=== PATIENT | female | born 1950 | race African-American/Black ===

== ENCOUNTER 2023-12-18 12:17 | Inpatient (IN) | payer OTHER ==
[2023-12-18 14:51] LABS: BASO % 0.2 % (0-2.0); EOS % 0.2 % (0-4.5); HEMATOCRIT 37.8 % (32.4-45.2); LYMPH % 3.7 % (8-40); MCH 27.8 pg (25.7-33.7); MCHC 31.7 g/dl (32.0-36.0); MEAN CELL VOLUME 87.8 fl (80-96); MEAN PLT VOLUME 10.4 fl (7.5-11.1); MONO % 5.5 % (3.8-10.2); NEUT % 90.4 % (42.8-82.8); PLATELET COUNT 162 10^3/uL (134-434); RDW 21.7 % (11.6-15.6); WHITE BLOOD COUNT 11.1 K/mm3 (4.0-10.0)
[2023-12-18 15:10] LABS: POTASSIUM 4.5 mmol/L (3.5-5.1)
[2023-12-18 15:12] LABS: ALBUMIN 2.6 g/dl (3.4-5.0); BLOOD UREA NITROGEN 45.7 mg/dL (7-18); CALCIUM 9.3 mg/dL (8.5-10.1)
[2023-12-18 15:14] LABS: VENOUS BASE EXCESS -0.2 mmol/L (-2-2); VENOUS O2 SATURATION 55.2 % (70-80); VENOUS PCO2 49.8 mmHg (38-52); VENOUS PH 7.34 (7.310-7.410)
[2023-12-18 15:16] LABS: CREATININE 1.8 mg/dL (0.55-1.3)
[2023-12-18 15:17] LABS: BILIRUBIN,TOTAL 0.8 mg/dL (0.2-1); TOT PROT 5.9 g/dl (6.4-8.2)
[2023-12-18 15:48] LABS: ANISOCYTOSIS 2+; MACROCYTOSIS 1+; PLATELET ESTIMATE ADEQUATE
[2023-12-18] MEDS ORDERED: VANCOMYCIN 1 GRAM (PRE-DOCKED) 1,000 MG/250 ML BAG IVPB ONE ×2 (15:58→16:38)
[2023-12-18] MEDS ORDERED: MEROPENEM 1 GM VIAL (RESTRICTED TO ID) IVPB ONE (15:59)
[2023-12-18] MEDS: MEROPENEM 1 GM in DEXTROSE 5%-WATER 100 ML IVPB ONE (16:20)
[2023-12-18 16:46] LABS: EPI CELLS >36 /uL (0-25.1); HYALINE CASTS 3 /uL (0-3.1); PH,URINE 5.5 (5.0-8.0); URINE APPEARANCE CLEAR; URINE BACTERIA 30 /uL (0-1359); URINE BILIRUBIN NEGATIVE (NEGATIVE); URINE COLOR YELLOW; URINE GLUCOSE (UA) NEGATIVE (NEGATIVE); URINE KETONE NEGATIVE (NEGATIVE); URINE LEUK ESTERASE NEGATIVE (NEGATIVE); URINE NITRITE NEGATIVE (NEGATIVE); URINE PROTEIN 2+ (NEGATIVE); URINE RBC 16 /uL (0-23.9); URINE UROBILINOGEN 0.2 mg/dL (0.2-1.0); URINE WBC 7 /uL (0-25.8)
[2023-12-18] MEDS ORDERED: morphine SULFATE 4 MG/ML VIAL ONE (17:23)
[2023-12-18] MEDS: morphine CARPU-JECT 4 MG/1 ML DISP.SYRIN IVPUSH ONE (17:39)
[2023-12-18] MEDS: VANCOMYCIN 1,000 MG in DEXTROSE 5%-WATER - 250 ML IVPB ONE (17:39)
[2023-12-18] MEDS ORDERED: MORPHINE SULFATE 2 MG/ML SYRINGE ONE ×2 (17:59→18:01)
[2023-12-18] MEDS: morphine CARPU-JECT 2 MG/1 ML DISP.SYRIN IVPUSH ONE (18:10)
[2023-12-18] MEDS ORDERED: ALBUTEROL SO4 HFA INHALER IH PRN (18:13)
[2023-12-18] MEDS ORDERED: NITROGLYCERIN SUBLINGUAL 1/150 0.4 MG TAB SL PRN (18:13)
[2023-12-18] MEDS: FUROSEMIDE 40 MG/4 ML INJECTABLE VIAL IVPUSH SCH (20:58)
[2023-12-18] MEDS ORDERED: morphine CARPU-JECT 2 MG/1 ML DISP.SYRIN IVPUSH PRN (21:21)
[2023-12-18] MEDS ORDERED: HYDROmorphone HCL CARPU-JECT 2 MG/1 ML DISP.SYRIN IVPUSH PRN (21:30)
[2023-12-18] MEDS ORDERED: SACUBITRIL/VALSARTAN 24 MG-26 MG TABLET PO SCH (22:00)
[2023-12-18] MEDS: ATORVASTATIN CA 40 MG TABLET (FP) PO SCH (22:18)
[2023-12-18] MEDS: APIXABAN 5 MG TABLET PO SCH (22:18)
[2023-12-18] MEDS: ACETAMINOPHEN 1000 MG/100 ML BAG IVPB SCH (22:19)
[2023-12-18] MEDS: INSULIN ASPART SLIDING SCALE (NOVOLOG) 1 VIAL SQ SCH (22:24)
[2023-12-19] MEDS: MEROPENEM 1 GM in DEXTROSE 5%-WATER 100 ML IVPB SCH (06:27)
[2023-12-19] MEDS: VANCOMYCIN PREMIX 1.5 GM 1,500 MG/300 ML BAG IVPB ONE (06:50)
[2023-12-19 09:12] LABS: INR 1.5 (0.83-1.09); PROTHROMBIN TIME (PATIENT) 17.1 SEC (9.7-13.0)
[2023-12-19 09:15] LABS: ACTIVATED PTT 26.6 SECONDS (25.2-36.5)
[2023-12-19 09:16] LABS: HEMATOCRIT 36.9 % (32.4-45.2); MCH 28.5 pg (25.7-33.7); MCHC 32.4 g/dl (32.0-36.0); MEAN CELL VOLUME 87.9 fl (80-96); PLATELET COUNT 150 10^3/uL (134-434); RBC 4.19 M/mm3 (3.60-5.2); RDW 21.9 % (11.6-15.6)
[2023-12-19 09:29] LABS: POTASSIUM 4.5 mmol/L (3.5-5.1)
[2023-12-19] MEDS: amLODIPine BESYLATE 10 MG TABLET (FP) PO SCH (09:35)
[2023-12-19] MEDS: ASPIRIN COATED 81 MG TABLET.EC PO SCH (09:35)
[2023-12-19 09:37] LABS: ALBUMIN 2.6 g/dl (3.4-5.0); BLOOD UREA NITROGEN 48.5 mg/dL (7-18)
[2023-12-19 09:38] LABS: CALCIUM 8.7 mg/dL (8.5-10.1)
[2023-12-19 09:39] LABS: BILIRUBIN,TOTAL 0.9 mg/dL (0.2-1); TOT PROT 5.5 g/dl (6.4-8.2)
[2023-12-19] MEDS: HYDROmorphone HCL CARPU-JECT 2 MG/1 ML DISP.SYRIN IVPUSH PRN (12:25)
[2023-12-19] MEDS ORDERED: CEFEPIME 1 GM in DEXTROSE 5%-WATER 100 ML IVPB SCH (13:15)
[2023-12-19] MEDS: SILVER SULFADIAZINE 1% TOP CREAM 400 GM JAR TP SCH (15:06)
[2023-12-19] MEDS: CEFEPIME 1 GM in DEXTROSE 5%-WATER 100 ML IVPB SCH (17:08)
[2023-12-19] MEDS ORDERED: CEFEPIME HCL 1 GM VIAL (RESTRICTED TO ID) IVPB SCH (18:00)
[2023-12-20 08:36] LABS: EPI CELLS 19 /uL (0-25.1); HYALINE CASTS 1 /uL (0-3.1); PH,URINE 5.5 (5.0-8.0); URINE APPEARANCE CLEAR; URINE BACTERIA 7 /uL (0-1359); URINE BILIRUBIN NEGATIVE (NEGATIVE); URINE COLOR YELLOW; URINE GLUCOSE (UA) NEGATIVE (NEGATIVE); URINE KETONE NEGATIVE (NEGATIVE); URINE LEUK ESTERASE NEGATIVE (NEGATIVE); URINE NITRITE NEGATIVE (NEGATIVE); URINE PROTEIN 1+ (NEGATIVE); URINE RBC 38 /uL (0-23.9); URINE UROBILINOGEN 0.2 mg/dL (0.2-1.0); URINE WBC 11 /uL (0-25.8)
[2023-12-20 09:28] LABS: BASO % 0.1 % (0-2.0); EOS % 3.1 % (0-4.5); HEMATOCRIT 38.7 % (32.4-45.2); HEMOGLOBIN 12.3 GM/dL (10.7-15.3); LYMPH % 13.6 % (8-40); MCH 28.2 pg (25.7-33.7); MCHC 31.8 g/dl (32.0-36.0); MEAN CELL VOLUME 88.7 fl (80-96); MEAN PLT VOLUME 9.9 fl (7.5-11.1); MONO % 9.3 % (3.8-10.2); NEUT % 73.9 % (42.8-82.8); PLATELET COUNT 131 10^3/uL (134-434); RBC 4.36 M/mm3 (3.60-5.2); RDW 21.9 % (11.6-15.6); WHITE BLOOD COUNT 7.1 K/mm3 (4.0-10.0)
[2023-12-20 09:40] LABS: CALCIUM 8.8 mg/dL (8.5-10.1)
[2023-12-20 09:41] LABS: BLOOD UREA NITROGEN 51.2 mg/dL (7-18)
[2023-12-20 09:44] LABS: MAGNESIUM 2.2 mg/dL (1.8-2.4)
[2023-12-20] MEDS ORDERED: INSULIN ASPART SLIDING SCALE (NOVOLOG) 1 VIAL SQ ONE (17:13)
[2023-12-21 12:16] LABS: BASO % 0.1 % (0-2.0); EOS % 3.3 % (0-4.5); HEMATOCRIT 38.1 % (32.4-45.2); LYMPH % 11.5 % (8-40); MCH 28.3 pg (25.7-33.7); MCHC 31.5 g/dl (32.0-36.0); MEAN CELL VOLUME 89.7 fl (80-96); MEAN PLT VOLUME 10.4 fl (7.5-11.1); MONO % 13.6 % (3.8-10.2); NEUT % 71.5 % (42.8-82.8); PLATELET COUNT 143 10^3/uL (134-434); RBC 4.24 M/mm3 (3.60-5.2); RDW 21.5 % (11.6-15.6); WHITE BLOOD COUNT 8.8 K/mm3 (4.0-10.0)
[2023-12-21 12:40] LABS: POTASSIUM 4.6 mmol/L (3.5-5.1)
[2023-12-21 12:41] LABS: CALCIUM 9.1 mg/dL (8.5-10.1)
[2023-12-21 12:42] LABS: BLOOD UREA NITROGEN 49.1 mg/dL (7-18)
[2023-12-21 12:45] LABS: CREATININE 1.7 mg/dL (0.55-1.3)
[2023-12-21] MEDS: MEROPENEM 1 GM in DEXTROSE 5%-WATER 100 ML IVPB SCH (18:11)
[2023-12-22] MEDS ORDERED: ONDANSETRON 4 MG/2 ML VIAL IVPUSH PRN (09:06)
[2023-12-22] MEDS: METOCLOPRAMIDE HCL INJECTION 10 MG/2 ML VIAL IVPUSH ONE ×2 (10:58→11:33)
[2023-12-22] MEDS: PANTOPRAZOLE SODIUM 80 MG in SODIUM CHLORIDE 100 ML IVPB ONE (10:58)
[2023-12-22] MEDS: PANTOPRAZOLE SODIUM 40 MG VIAL IVPUSH ONE (11:34)
[2023-12-22] MEDS: PANTOPRAZOLE SODIUM 80 MG in SODIUM CHLORIDE 100 ML IVPB SCH (12:35)
[2023-12-22 13:03] LABS: BASO % 0.2 % (0-2.0); EOS % 1.1 % (0-4.5); HEMATOCRIT 28.6 % (32.4-45.2); HEMOGLOBIN 9.2 GM/dL (10.7-15.3); LYMPH % 8.7 % (8-40); MCH 28.6 pg (25.7-33.7); MCHC 32.2 g/dl (32.0-36.0); MEAN CELL VOLUME 88.8 fl (80-96); MEAN PLT VOLUME 10.4 fl (7.5-11.1); MONO % 9.6 % (3.8-10.2); NEUT % 80.4 % (42.8-82.8); PLATELET COUNT 134 10^3/uL (134-434); RBC 3.23 M/mm3 (3.60-5.2); RDW 21.1 % (11.6-15.6); WHITE BLOOD COUNT 8.3 K/mm3 (4.0-10.0)
[2023-12-22 13:11] LABS: INR 1.98 (0.83-1.09); PROTHROMBIN TIME (PATIENT) 21.9 SEC (9.7-13.0)
[2023-12-22 13:26] LABS: POTASSIUM 4.4 mmol/L (3.5-5.1)
[2023-12-22 13:27] LABS: CALCIUM 8.4 mg/dL (8.5-10.1)
[2023-12-22 13:28] LABS: ALBUMIN 2.1 g/dl (3.4-5.0); BLOOD UREA NITROGEN 58.4 mg/dL (7-18); MAGNESIUM 2.1 mg/dL (1.8-2.4)
[2023-12-22 13:32] LABS: CREATININE 1.6 mg/dL (0.55-1.3)
[2023-12-22 13:34] LABS: TOT PROT 4.8 g/dl (6.4-8.2)
[2023-12-22 13:38] LABS: ANISOCYTOSIS 2+; MACROCYTOSIS 0; OVALOCYTE 1+; TARGET CELLS 1+
[2023-12-22] MEDS: METOPROLOL TARTRATE 5 MG/5 ML VIAL IVPUSH ONE (17:50)
[2023-12-22] MEDS ORDERED: METOCLOPRAMIDE HCL INJECTION 10 MG/2 ML VIAL IVPUSH SCH (18:00)
[2023-12-22] MEDS ORDERED: RAPID SEQUENCE INTUBATION KIT NR ONE (18:39)
[2023-12-22] MEDS ORDERED: PROPOFOL 1,000,000 MCG/100 ML VIAL ONE (19:26)
[2023-12-22] MEDS ORDERED: FENTANYL NS IVPB 500 MCG/100 ML BAG IVPB ONE (19:27)
[2023-12-22 19:46] LABS: BASO % 0.3 % (0-2.0); EOS % 0.4 % (0-4.5); HEMATOCRIT 27.7 % (32.4-45.2); HEMOGLOBIN 8.8 GM/dL (10.7-15.3); LYMPH % 10.6 % (8-40); MCH 28.3 pg (25.7-33.7); MCHC 31.8 g/dl (32.0-36.0); MEAN CELL VOLUME 89.1 fl (80-96); MEAN PLT VOLUME 10.1 fl (7.5-11.1); MONO % 10.3 % (3.8-10.2); NEUT % 78.4 % (42.8-82.8); PLATELET COUNT 131 10^3/uL (134-434); RBC 3.11 M/mm3 (3.60-5.2); RDW 21.3 % (11.6-15.6); WHITE BLOOD COUNT 9.1 K/mm3 (4.0-10.0)
[2023-12-22] MEDS: methylPREDNISolone NA SUCC 40 MG/1 ML VIAL IVPUSH ONE (20:34)
[2023-12-22] MEDS: LACTATED RINGERS SOLUTION 1000 ML INFUS.BAG IV ONE ×2 (20:36→22:09)
[2023-12-22] MEDS: FENTANYL NS IVPB 500 MCG/100 ML BAG IVPB SCH (20:36)
[2023-12-22] MEDS: PROPOFOL 1,000,000 MCG/100 ML VIAL IVPB SCH (20:36)
[2023-12-22 21:20] LABS: ARTERIAL BLD GAS O2 SATURATION 99.7 % (95-98); ARTERIAL BLOOD GAS PO2 292.1 mmHg (80-100); ARTERIAL BLOOD GAS pH 7.468 (7.350-7.450)
[2023-12-22 21:25] LABS: VENT MODE V A/C; VENT RATE 20
[2023-12-22 21:27] LABS: INR 2.16 (0.83-1.09); PROTHROMBIN TIME (PATIENT) 23.9 SEC (9.7-13.0)
[2023-12-22] MEDS: CHLORHEXIDINE GLUCONATE 4% CLEANSER FOR DECOLONIZATION TP SCH (21:37)
[2023-12-22] MEDS: MUPIROCIN 2% TOPICAL OINTMENT FOR DECOLONIZATION NS SCH (21:37)
[2023-12-22] MEDS ORDERED: PHENYLEPHRINE HCL 50,000 MCG in SODIUM CHLORIDE 500 ML IV SCH (22:00)
[2023-12-22 22:23] LABS: BASO % 0.2 % (0-2.0); EOS % 0.9 % (0-4.5); HEMATOCRIT 18.9 % (32.4-45.2); LYMPH % 6.7 % (8-40); MCH 28.2 pg (25.7-33.7); MCHC 32.4 g/dl (32.0-36.0); MEAN CELL VOLUME 87.1 fl (80-96); MEAN PLT VOLUME 10.3 fl (7.5-11.1); MONO % 8.6 % (3.8-10.2); NEUT % 83.6 % (42.8-82.8); PLATELET COUNT 96 10^3/uL (134-434); RBC 2.16 M/mm3 (3.60-5.2); WHITE BLOOD COUNT 6.8 K/mm3 (4.0-10.0)
[2023-12-22] MEDS ORDERED: ALBUTEROL SO4 HFA INHALER IH PRN (22:26)
[2023-12-22 22:30] LABS: HEMOGLOBIN 6.1 GM/dL (10.7-15.3)
[2023-12-22] MEDS: LACTATED RINGERS SOLUTION 1,000 ML IV SCH (22:39)
[2023-12-22] MEDS: INSULIN ASPART SLIDING SCALE (NOVOLOG) 1 VIAL SQ SCH (23:10)
[2023-12-23 01:55] LABS: MCH 29.7 pg (25.7-33.7); MCHC 33.5 g/dl (32.0-36.0); MEAN CELL VOLUME 88.6 fl (80-96); MEAN PLT VOLUME 8.9 fl (7.5-11.1); PLATELET COUNT 128 10^3/uL (134-434); RBC 3.05 M/mm3 (3.60-5.2); RDW 18.2 % (11.6-15.6); WHITE BLOOD COUNT 8.8 K/mm3 (4.0-10.0)
[2023-12-23 04:34] LABS: ANISOCYTOSIS 3+; MACROCYTOSIS 0; OVALOCYTE 1+; ROULEAU 1+
[2023-12-23 05:33] LABS: HEMATOCRIT 27.2 % (32.4-45.2); HEMOGLOBIN 9.3 GM/dL (10.7-15.3); MCH 30.1 pg (25.7-33.7); MCHC 34.2 g/dl (32.0-36.0); MEAN PLT VOLUME 8.8 fl (7.5-11.1); PLATELET COUNT 121 10^3/uL (134-434); RBC 3.09 M/mm3 (3.60-5.2); RDW 17.6 % (11.6-15.6); WHITE BLOOD COUNT 8.3 K/mm3 (4.0-10.0)
[2023-12-23 06:45] LABS: INR 1.52 (0.83-1.09)
[2023-12-23 06:56] LABS: POTASSIUM 3.9 mmol/L (3.5-5.1)
[2023-12-23 06:59] LABS: CALCIUM 7.5 mg/dL (8.5-10.1)
[2023-12-23 07:00] LABS: ALBUMIN 1.8 g/dl (3.4-5.0); MAGNESIUM 1.9 mg/dL (1.8-2.4)
[2023-12-23] MEDS ORDERED: methylPREDNISolone NA SUCC 40 MG/1 ML VIAL IVPUSH ONE ×2 (07:00→10:00)
[2023-12-23] MEDS ORDERED: INSULIN ASPART SLIDING SCALE (NOVOLOG) 1 VIAL SQ SCH (07:00)
[2023-12-23 07:03] LABS: CREATININE 1.5 mg/dL (0.55-1.3)
[2023-12-23 07:04] LABS: TOT PROT 3.8 g/dl (6.4-8.2)
[2023-12-23 08:24] LABS: ANISOCYTOSIS 1+; MACROCYTOSIS 0; OVALOCYTE 1+; TARGET CELLS 1+
[2023-12-23] MEDS: PANTOPRAZOLE SODIUM 80 MG in SODIUM CHLORIDE 100 ML IVPB SCH (10:01)
[2023-12-23] MEDS: methylPREDNISolone NA SUCC 40 MG/1 ML VIAL IVPUSH ONE ×2 (10:08→14:53)
[2023-12-23 10:36] LABS: ARTERIAL BLD GAS O2 SATURATION 99.6 % (95-98); ARTERIAL BLOOD GAS BASE EXCESS 1.1 mmol/L (-2-2); ARTERIAL BLOOD GAS PO2 238.9 mmHg (80-100); ARTERIAL BLOOD GAS pH 7.529 (7.350-7.450)
[2023-12-23 10:48] LABS: VENT MODE A/C; VENT RATE 14
[2023-12-23] MEDS: SILVER SULFADIAZINE 1% TOP CREAM 400 GM JAR TP SCH (11:36)
[2023-12-23] MEDS: NOREPINEPHRINE 0.9 % NACL 8 MG/250 ML BAG IVPB SCH (11:58)
[2023-12-23] MEDS ORDERED: FACTOR XA,INACTIVATED-ZHZO 480 MG/48 ML VIAL IVPB ONE (14:50)
[2023-12-23] MEDS: FACTOR XA,INACTIVATED - BOLUS 400 MG/40 ML VIAL IVPB ONE (14:54)
[2023-12-23] MEDS: LACTATED RINGERS SOLUTION 1,000 ML IV SCH (14:55)
[2023-12-23] MEDS: SODIUM CHLORIDE 50 ML IVPB ONE (14:55)
[2023-12-23 15:11] LABS: HEMATOCRIT 29.7 % (32.4-45.2); MCH 29.5 pg (25.7-33.7); MCHC 33.6 g/dl (32.0-36.0); MEAN CELL VOLUME 87.6 fl (80-96); MEAN PLT VOLUME 9.3 fl (7.5-11.1); PLATELET COUNT 158 10^3/uL (134-434); RBC 3.39 M/mm3 (3.60-5.2); WHITE BLOOD COUNT 9.9 K/mm3 (4.0-10.0)
[2023-12-23 15:39] LABS: MACROCYTOSIS 0
[2023-12-23 15:42] LABS: ANISOCYTOSIS 0
[2023-12-23] MEDS ORDERED: SODIUM CHLORIDE 50 ML IVPB ONE (16:25)
[2023-12-23 20:39] LABS: HEMATOCRIT 31.1 % (32.4-45.2); HEMOGLOBIN 10.2 GM/dL (10.7-15.3); LYMPH % 3.7 % (8-40); MCH 28.8 pg (25.7-33.7); MCHC 32.8 g/dl (32.0-36.0); MEAN CELL VOLUME 87.6 fl (80-96); MEAN PLT VOLUME 9.4 fl (7.5-11.1); MONO % 3.6 % (3.8-10.2); NEUT % 92.7 % (42.8-82.8); PLATELET COUNT 170 10^3/uL (134-434); RBC 3.55 M/mm3 (3.60-5.2); RDW 17.6 % (11.6-15.6); WHITE BLOOD COUNT 11.8 K/mm3 (4.0-10.0)
[2023-12-23 20:47] LABS: INR 1.3 (0.83-1.09); PROTHROMBIN TIME (PATIENT) 14.8 SEC (9.7-13.0)
[2023-12-23 20:49] LABS: ACTIVATED PTT 24.3 SECONDS (25.2-36.5)
[2023-12-23 21:10] LABS: POTASSIUM 4.1 mmol/L (3.5-5.1)
[2023-12-23 21:12] LABS: BLOOD UREA NITROGEN 72.8 mg/dL (7-18); MAGNESIUM 2.1 mg/dL (1.8-2.4)
[2023-12-23 21:15] LABS: ANISOCYTOSIS 1+; CREATININE 1.9 mg/dL (0.55-1.3); MACROCYTOSIS 1+
[2023-12-23 21:16] LABS: PHOSPHOROUS 3.3 mg/dL (2.5-4.9)
[2023-12-23] MEDS: PANTOPRAZOLE SODIUM 40 MG VIAL IVPUSH SCH (23:36)
[2023-12-24] MEDS ORDERED: PHENYLEPHRINE HCL 10 MG/1 ML SINGLE DOSE VIAL ONE (01:58)
[2023-12-24 06:57] LABS: BASO % 0.1 % (0-2.0); HEMATOCRIT 31.3 % (32.4-45.2); HEMOGLOBIN 10.6 GM/dL (10.7-15.3); MCH 29.7 pg (25.7-33.7); MCHC 33.7 g/dl (32.0-36.0); MEAN PLT VOLUME 9.4 fl (7.5-11.1); MONO % 7.7 % (3.8-10.2); NEUT % 87.2 % (42.8-82.8); PLATELET COUNT 170 10^3/uL (134-434); RBC 3.56 M/mm3 (3.60-5.2); RDW 18.2 % (11.6-15.6); WHITE BLOOD COUNT 14.9 K/mm3 (4.0-10.0)
[2023-12-24 07:07] LABS: ARTERIAL BLD GAS O2 SATURATION 99.1 % (95-98); ARTERIAL BLOOD GAS BASE EXCESS -1.7 mmol/L (-2-2); ARTERIAL BLOOD GAS PO2 167.8 mmHg (80-100); ARTERIAL BLOOD GAS pH 7.402 (7.350-7.450)
[2023-12-24 07:15] LABS: PT'S TEMP INTUBATE; VENT MODE 400; VENT RATE 7
[2023-12-24 07:16] LABS: POTASSIUM 4.2 mmol/L (3.5-5.1)
[2023-12-24 07:22] LABS: ALBUMIN 2.2 g/dl (3.4-5.0); BLOOD UREA NITROGEN 75.1 mg/dL (7-18); CALCIUM 7.9 mg/dL (8.5-10.1)
[2023-12-24 07:25] LABS: CREATININE 2.1 mg/dL (0.55-1.3)
[2023-12-24 07:26] LABS: PHOSPHOROUS 3.5 mg/dL (2.5-4.9)
[2023-12-24 07:28] LABS: BILIRUBIN,TOTAL 0.7 mg/dL (0.2-1); TOT PROT 4.5 g/dl (6.4-8.2)
[2023-12-24] MEDS: ADENOSINE 6 MG/2 ML VIAL IVPUSH ONE ×3 (11:18→11:43)
[2023-12-24] MEDS ORDERED: AMIODARONE IN DEXTROSE,ISO-OSM 150 MG/100 ML BAG ONE (11:32)
[2023-12-24] MEDS: AMIODARONE HCL INJECTION 150 MG in DEXTROSE 5%-WATER - 100 ML IVPB ONE (11:44)
[2023-12-24] MEDS: AMIODARONE IN DEXTROSE,ISO-OSM 360 MG/200 ML BAG IV SCH ×2 (11:47→17:38)
[2023-12-25 06:42] LABS: BASO % 0.1 % (0-2.0); EOS % 1.3 % (0-4.5); HEMOGLOBIN 9.1 GM/dL (10.7-15.3); LYMPH % 6.5 % (8-40); MCH 29.3 pg (25.7-33.7); MCHC 32.5 g/dl (32.0-36.0); MEAN CELL VOLUME 90.2 fl (80-96); MEAN PLT VOLUME 9.8 fl (7.5-11.1); MONO % 9.5 % (3.8-10.2); NEUT % 82.6 % (42.8-82.8); PLATELET COUNT 112 10^3/uL (134-434); RBC 3.11 M/mm3 (3.60-5.2); RDW 17.8 % (11.6-15.6); WHITE BLOOD COUNT 11.9 K/mm3 (4.0-10.0)
[2023-12-25 07:01] LABS: POTASSIUM 3.9 mmol/L (3.5-5.1)
[2023-12-25 07:08] LABS: ALBUMIN 1.9 g/dl (3.4-5.0); BLOOD UREA NITROGEN 78.3 mg/dL (7-18); CALCIUM 8.1 mg/dL (8.5-10.1); MAGNESIUM 2.1 mg/dL (1.8-2.4)
[2023-12-25 07:11] LABS: CREATININE 2.2 mg/dL (0.55-1.3)
[2023-12-25 07:13] LABS: TOT PROT 4.1 g/dl (6.4-8.2)
[2023-12-25] MEDS ORDERED: DEXTROSE 50%-WATER 25 GM/50 ML DISP.SYRIN ONE (12:18)
[2023-12-25] MEDS: DEXTROSE 50%-WATER 25 GM/50 ML DISP.SYRIN IVPUSH ONE ×2 (12:25→22:29)
[2023-12-25] MEDS: DEXTROSE 5%-WATER - 1,000 ML IV SCH (22:29)
[2023-12-26] MEDS: DEXTROSE 10%-WATER - 1,000 ML IV SCH (06:36)
[2023-12-26] MEDS: DEXTROSE 50%-WATER 25 GM/50 ML DISP.SYRIN IVPUSH ONE ×2 (06:36→17:40)
[2023-12-26 07:37] LABS: ARTERIAL BLD GAS O2 SATURATION 98.9 % (95-98); ARTERIAL BLOOD GAS BASE EXCESS -1.6 mmol/L (-2-2); ARTERIAL BLOOD GAS PO2 146.2 mmHg (80-100); ARTERIAL BLOOD GAS pH 7.392 (7.350-7.450)
[2023-12-26 07:50] LABS: VENT MODE V-A/C; VENT RATE 12
[2023-12-26 07:57] LABS: POTASSIUM 3.4 mmol/L (3.5-5.1)
[2023-12-26 08:04] LABS: ALBUMIN 1.7 g/dl (3.4-5.0); BLOOD UREA NITROGEN 71.6 mg/dL (7-18); CALCIUM 7.8 mg/dL (8.5-10.1); HEMATOCRIT 26.2 % (32.4-45.2); HEMOGLOBIN 8.5 GM/dL (10.7-15.3); MAGNESIUM 2.1 mg/dL (1.8-2.4); MCHC 32.4 g/dl (32.0-36.0); MEAN CELL VOLUME 89.7 fl (80-96); MEAN PLT VOLUME 10.3 fl (7.5-11.1); PLATELET COUNT 99 10^3/uL (134-434); RBC 2.92 M/mm3 (3.60-5.2); RDW 18.8 % (11.6-15.6); WHITE BLOOD COUNT 10.5 K/mm3 (4.0-10.0)
[2023-12-26 08:07] LABS: CREATININE 2.1 mg/dL (0.55-1.3)
[2023-12-26 08:08] LABS: BILIRUBIN,TOTAL 0.6 mg/dL (0.2-1); PHOSPHOROUS 3.2 mg/dL (2.5-4.9)
[2023-12-26 08:09] LABS: TOT PROT 3.5 g/dl (6.4-8.2)
[2023-12-26] MEDS: KCL 20 MEQ PREMIX BAG 20 MEQ/100 ML INFUS.BAG IVPB ONE (13:49)
[2023-12-26] MEDS ORDERED: AMIODARONE IN DEXTROSE,ISO-OSM 360 MG/200 ML BAG IV SCH (15:45)
[2023-12-26] MEDS ORDERED: DEXTROSE 50%-WATER 25 GM/50 ML DISP.SYRIN ONE (17:20)
[2023-12-26] MEDS: AMIODARONE IN DEXTROSE,ISO-OSM 360 MG/200 ML BAG IV SCH (18:29)
[2023-12-26] MEDS ORDERED: AMIODARONE HCL 200 MG TABLET NGT SCH (22:00)
[2023-12-27 07:28] LABS: INR 1.08 (0.83-1.09); PROTHROMBIN TIME (PATIENT) 12.2 SEC (9.7-13.0)
[2023-12-27 07:31] LABS: ACTIVATED PTT 24.4 SECONDS (25.2-36.5)
[2023-12-27 07:37] LABS: HEMATOCRIT 26.7 % (32.4-45.2); HEMOGLOBIN 8.8 GM/dL (10.7-15.3); MCH 29.5 pg (25.7-33.7); MCHC 32.8 g/dl (32.0-36.0); MEAN CELL VOLUME 89.9 fl (80-96); MEAN PLT VOLUME 10.2 fl (7.5-11.1); PLATELET COUNT 98 10^3/uL (134-434); POTASSIUM 3.5 mmol/L (3.5-5.1); RBC 2.97 M/mm3 (3.60-5.2); RDW 18.4 % (11.6-15.6)
[2023-12-27 07:40] LABS: ALBUMIN 1.6 g/dl (3.4-5.0); BLOOD UREA NITROGEN 58.1 mg/dL (7-18)
[2023-12-27 07:43] LABS: CREATININE 1.6 mg/dL (0.55-1.3)
[2023-12-27 07:44] LABS: BILIRUBIN,TOTAL 0.4 mg/dL (0.2-1)
[2023-12-27 07:45] LABS: TOT PROT 3.6 g/dl (6.4-8.2)
[2023-12-27] MEDS: KCL 20 MEQ PREMIX BAG 20 MEQ/100 ML INFUS.BAG IVPB ONE (09:42)
[2023-12-27] MEDS: AMINO ACIDS 4.25%/D5W 1,000 ML IV SCH ×3 (13:08→20:27)
[2023-12-28 06:23] LABS: ARTERIAL BLD GAS O2 SATURATION 97.4 % (95-98); ARTERIAL BLOOD GAS BASE EXCESS -2.7 mmol/L (-2-2); ARTERIAL BLOOD GAS PO2 105.3 mmHg (80-100); ARTERIAL BLOOD GAS pH 7.328 (7.350-7.450)
[2023-12-28 06:33] LABS: VENT MODE A/C; VENT RATE 12
[2023-12-28 06:49] LABS: INR 1.07 (0.83-1.09); PROTHROMBIN TIME (PATIENT) 12.3 SEC (9.7-13.0)
[2023-12-28 06:53] LABS: BASO % 0.2 % (0-2.0); EOS % 1.9 % (0-4.5); HEMATOCRIT 29.7 % (32.4-45.2); HEMOGLOBIN 9.5 GM/dL (10.7-15.3); MCHC 32.1 g/dl (32.0-36.0); MEAN CELL VOLUME 90.3 fl (80-96); MEAN PLT VOLUME 10.2 fl (7.5-11.1); MONO % 7.9 % (3.8-10.2); PLATELET COUNT 110 10^3/uL (134-434); RBC 3.29 M/mm3 (3.60-5.2); RDW 18.6 % (11.6-15.6); WHITE BLOOD COUNT 13.2 K/mm3 (4.0-10.0)
[2023-12-28 06:54] LABS: POTASSIUM 3.6 mmol/L (3.5-5.1)
[2023-12-28 07:00] LABS: ALBUMIN 1.7 g/dl (3.4-5.0); BLOOD UREA NITROGEN 57.8 mg/dL (7-18)
[2023-12-28 07:03] LABS: CREATININE 1.6 mg/dL (0.55-1.3)
[2023-12-28 07:04] LABS: BILIRUBIN,TOTAL 0.8 mg/dL (0.2-1)
[2023-12-28 07:05] LABS: TOT PROT 4.1 g/dl (6.4-8.2)
[2023-12-28 12:33] VITALS: BMI 44.2
[2023-12-28] MEDS: ENOXAPARIN NA (PORCINE) 40 MG/0.4 ML DISP.SYRIN SQ SCH (13:37)
[2023-12-28] MEDS: FUROSEMIDE 40 MG/4 ML INJECTABLE VIAL IVPUSH ONE (13:38)
[2023-12-28] MEDS: METOPROLOL TARTRATE 50 MG TABLET (FP) PO SCH (16:33)
[2023-12-29 06:31] LABS: ARTERIAL BLD GAS O2 SATURATION 98.7 % (95-98); ARTERIAL BLOOD GAS BASE EXCESS -2.9 mmol/L (-2-2); ARTERIAL BLOOD GAS PO2 136.2 mmHg (80-100); ARTERIAL BLOOD GAS pH 7.384 (7.350-7.450)
[2023-12-29 06:47] LABS: BASO % 0.3 % (0-2.0); HEMATOCRIT 28.5 % (32.4-45.2); HEMOGLOBIN 9.2 GM/dL (10.7-15.3); LYMPH % 5.1 % (8-40); MCH 29.2 pg (25.7-33.7); MCHC 32.2 g/dl (32.0-36.0); MEAN CELL VOLUME 90.7 fl (80-96); MEAN PLT VOLUME 10.2 fl (7.5-11.1); MONO % 9.5 % (3.8-10.2); NEUT % 83.1 % (42.8-82.8); PLATELET COUNT 119 10^3/uL (134-434); RBC 3.14 M/mm3 (3.60-5.2); RDW 18.2 % (11.6-15.6); WHITE BLOOD COUNT 11.2 K/mm3 (4.0-10.0)
[2023-12-29 06:57] LABS: POTASSIUM 3.6 mmol/L (3.5-5.1)
[2023-12-29 07:04] LABS: ALBUMIN 1.6 g/dl (3.4-5.0)
[2023-12-29 07:05] LABS: BLOOD UREA NITROGEN 59.6 mg/dL (7-18)
[2023-12-29 07:09] LABS: BILIRUBIN,TOTAL 0.7 mg/dL (0.2-1)
[2023-12-29 07:13] LABS: CREATININE 1.6 mg/dL (0.55-1.3)
[2023-12-29] MEDS: FUROSEMIDE 40 MG/4 ML INJECTABLE VIAL IVPUSH ONE ×2 (11:36→23:16)
[2023-12-29] MEDS ORDERED: PROPOFOL 200 MG/20 ML VIAL IVPUSH PRN (13:38)
[2023-12-29] MEDS ORDERED: FUROSEMIDE 40 MG/4 ML INJECTABLE VIAL ONE (22:51)
[2023-12-29] MEDS: APIXABAN 5 MG TABLET PO SCH (22:53)
[2023-12-30 06:53] LABS: BASO % 0.2 % (0-2.0); EOS % 1.5 % (0-4.5); HEMATOCRIT 27.7 % (32.4-45.2); HEMOGLOBIN 9.2 GM/dL (10.7-15.3); LYMPH % 4.2 % (8-40); MCH 29.7 pg (25.7-33.7); MCHC 33.1 g/dl (32.0-36.0); MEAN CELL VOLUME 89.7 fl (80-96); MEAN PLT VOLUME 9.9 fl (7.5-11.1); MONO % 10.5 % (3.8-10.2); NEUT % 83.6 % (42.8-82.8); PLATELET COUNT 138 10^3/uL (134-434); RBC 3.09 M/mm3 (3.60-5.2); RDW 17.7 % (11.6-15.6)
[2023-12-30 07:25] LABS: POTASSIUM 3.2 mmol/L (3.5-5.1)
[2023-12-30 07:31] LABS: ALBUMIN 1.6 g/dl (3.4-5.0); CALCIUM 8.1 mg/dL (8.5-10.1)
[2023-12-30 07:32] LABS: BLOOD UREA NITROGEN 53.7 mg/dL (7-18); MAGNESIUM 1.9 mg/dL (1.8-2.4)
[2023-12-30 07:35] LABS: CREATININE 1.5 mg/dL (0.55-1.3)
[2023-12-30 07:36] LABS: BILIRUBIN,TOTAL 0.9 mg/dL (0.2-1); TOT PROT 4.1 g/dl (6.4-8.2)
[2023-12-30] MEDS ORDERED: DEXTROSE 50%-WATER 25 GM/50 ML DISP.SYRIN ONE (11:11)
[2023-12-30] MEDS: FUROSEMIDE 40 MG/4 ML INJECTABLE VIAL IVPUSH SCH (11:15)
[2023-12-30] MEDS: DEXTROSE 50%-WATER 25 GM/50 ML DISP.SYRIN IVPUSH ONE ×3 (11:18→17:37)
[2023-12-30] MEDS: POTASSIUM CHLORIDE ORAL LIQUID 20 MEQ/15 ML GT ONE (11:30)
[2023-12-30] MEDS: KCL 10 MEQ IVPB 10 MEQ/100 ML INFUS.BAG IVPB SCH (14:33)
[2023-12-31 08:09] LABS: BASO % 0.1 % (0-2.0); EOS % 1.7 % (0-4.5); HEMATOCRIT 25.3 % (32.4-45.2); HEMOGLOBIN 8.2 GM/dL (10.7-15.3); LYMPH % 4.3 % (8-40); MCH 29.4 pg (25.7-33.7); MCHC 32.6 g/dl (32.0-36.0); MEAN CELL VOLUME 90.3 fl (80-96); MEAN PLT VOLUME 9.6 fl (7.5-11.1); MONO % 13.4 % (3.8-10.2); NEUT % 80.5 % (42.8-82.8); PLATELET COUNT 153 10^3/uL (134-434); RDW 17.5 % (11.6-15.6); WHITE BLOOD COUNT 12.9 K/mm3 (4.0-10.0)
[2023-12-31 08:55] LABS: ALBUMIN 1.6 g/dl (3.4-5.0); BILIRUBIN,TOTAL 0.7 mg/dL (0.2-1); BLOOD UREA NITROGEN 51.3 mg/dL (7-18); CALCIUM 8.2 mg/dL (8.5-10.1); CREATININE 1.6 mg/dL (0.55-1.3); MAGNESIUM 1.9 mg/dL (1.8-2.4); PHOSPHOROUS 2.5 mg/dL (2.5-4.9); POTASSIUM 3.4 mmol/L (3.5-5.1); TOT PROT 4.2 g/dl (6.4-8.2)
[2023-12-31] MEDS: POTASSIUM CHLORIDE ORAL LIQUID 20 MEQ/15 ML PO ONE (10:52)
[2023-12-31] MEDS ORDERED: INSULIN ASPART SLIDING SCALE (NOVOLOG) 1 VIAL SQ ONE (11:05)
[2023-12-31 14:53] LABS: BASO % 0.3 % (0-2.0); EOS % 1.4 % (0-4.5); HEMATOCRIT 26.3 % (32.4-45.2); HEMOGLOBIN 8.4 GM/dL (10.7-15.3); LYMPH % 4.6 % (8-40); MCH 28.8 pg (25.7-33.7); MCHC 31.9 g/dl (32.0-36.0); MEAN CELL VOLUME 90.2 fl (80-96); MEAN PLT VOLUME 9.6 fl (7.5-11.1); MONO % 13.7 % (3.8-10.2); PLATELET COUNT 177 10^3/uL (134-434); RBC 2.91 M/mm3 (3.60-5.2); RDW 18.1 % (11.6-15.6); WHITE BLOOD COUNT 12.7 K/mm3 (4.0-10.0)
[2024-01-01] MEDS: PROPOFOL 200 MG/20 ML VIAL IVPUSH PRN (04:48)
[2024-01-01 06:55] LABS: BASO % 0.2 % (0-2.0); EOS % 2.3 % (0-4.5); HEMATOCRIT 24.9 % (32.4-45.2); HEMOGLOBIN 8.2 GM/dL (10.7-15.3); LYMPH % 5.5 % (8-40); MCH 29.8 pg (25.7-33.7); MCHC 32.8 g/dl (32.0-36.0); MEAN CELL VOLUME 90.7 fl (80-96); MEAN PLT VOLUME 9.8 fl (7.5-11.1); MONO % 14.3 % (3.8-10.2); NEUT % 77.7 % (42.8-82.8); PLATELET COUNT 172 10^3/uL (134-434); RBC 2.74 M/mm3 (3.60-5.2); RDW 17.7 % (11.6-15.6); WHITE BLOOD COUNT 12.3 K/mm3 (4.0-10.0)
[2024-01-01 07:12] LABS: POTASSIUM 3.9 mmol/L (3.5-5.1)
[2024-01-01 07:15] LABS: CALCIUM 8.2 mg/dL (8.5-10.1)
[2024-01-01 07:16] LABS: ALBUMIN 1.7 g/dl (3.4-5.0); BLOOD UREA NITROGEN 51.4 mg/dL (7-18); MAGNESIUM 1.8 mg/dL (1.8-2.4)
[2024-01-01 07:19] LABS: CREATININE 1.5 mg/dL (0.55-1.3); PHOSPHOROUS 2.1 mg/dL (2.5-4.9)
[2024-01-01 07:21] LABS: BILIRUBIN,TOTAL 0.8 mg/dL (0.2-1); TOT PROT 4.6 g/dl (6.4-8.2)
[2024-01-01] MEDS: SCOPOLAMINE HYDROBROMIDE 1 PATCH PATCH.TD72 TD SCH (12:25)
[2024-01-01] MEDS: DEXAMETHASONE SOD PHOSPHATE 10 MG/1 ML VIAL IVPUSH SCH (12:25)
[2024-01-01 14:30] LABS: ARTERIAL BLD GAS O2 SATURATION 98.9 % (95-98)
[2024-01-01] MEDS: ALBUTEROL SO4 2.5/IPRATROPIUM 0.5 INH SOL 3 ML VIAL.NEB. NEB PRN (14:30)
[2024-01-01] MEDS ORDERED: RAPID SEQUENCE INTUBATION KIT NR ONE (14:37)
[2024-01-01] MEDS ORDERED: ROCURONIUM BROMIDE 50 MG/5 ML VIAL ONE (14:39)
[2024-01-01] MEDS: ETOMIDATE 20 MG/10 ML VIAL IVPUSH ONE (14:50)
[2024-01-01] MEDS: ROCURONIUM BROMIDE 50 MG/5 ML VIAL IV ONE (14:50)
[2024-01-01] MEDS: METOPROLOL TARTRATE 5 MG/5 ML VIAL IVPUSH ONE (15:43)
[2024-01-01] MEDS: PROPOFOL 1,000,000 MCG/100 ML VIAL IVPB SCH (15:45)
[2024-01-01 16:30] LABS: ARTERIAL BLD GAS O2 SATURATION 91.8 % (95-98); ARTERIAL BLOOD GAS BASE EXCESS -1.4 mmol/L (-2-2); ARTERIAL BLOOD GAS pH 7.355 (7.350-7.450)
[2024-01-01 16:34] LABS: ALLENS TEST POSITIVE; VENT MODE A/C; VENT RATE 12
[2024-01-02 05:56] LABS: ARTERIAL BLD GAS O2 SATURATION 99.1 % (95-98); ARTERIAL BLOOD GAS BASE EXCESS 2.3 mmol/L (-2-2); ARTERIAL BLOOD GAS PO2 157.8 mmHg (80-100); ARTERIAL BLOOD GAS pH 7.463 (7.350-7.450)
[2024-01-02 05:57] LABS: ALLENS TEST POSITIVE; VENT MODE A/C; VENT RATE 12
[2024-01-02 06:41] LABS: HEMATOCRIT 25.9 % (32.4-45.2); HEMOGLOBIN 8.3 GM/dL (10.7-15.3); MCH 29.1 pg (25.7-33.7); MEAN CELL VOLUME 91.2 fl (80-96); MEAN PLT VOLUME 9.2 fl (7.5-11.1); PLATELET COUNT 216 10^3/uL (134-434); RBC 2.84 M/mm3 (3.60-5.2); RDW 17.8 % (11.6-15.6); WHITE BLOOD COUNT 12.5 K/mm3 (4.0-10.0)
[2024-01-02 07:28] LABS: POTASSIUM 4.1 mmol/L (3.5-5.1)
[2024-01-02 07:30] LABS: CALCIUM 8.6 mg/dL (8.5-10.1)
[2024-01-02 07:31] LABS: ALBUMIN 1.7 g/dl (3.4-5.0); BLOOD UREA NITROGEN 57.8 mg/dL (7-18); MAGNESIUM 2.1 mg/dL (1.8-2.4)
[2024-01-02 07:34] LABS: CREATININE 1.6 mg/dL (0.55-1.3); PHOSPHOROUS 3.1 mg/dL (2.5-4.9)
[2024-01-02 07:35] LABS: BILIRUBIN,TOTAL 0.6 mg/dL (0.2-1); TOT PROT 4.7 g/dl (6.4-8.2)
[2024-01-02 09:21] LABS: ANISOCYTOSIS 0; HELMET CELLS 0; HOWELL-JOLLY BODIES 0; MACROCYTOSIS 0; OVALOCYTE 0; ROULEAU 0; SICKELED CELLS 0; TARGET CELLS 0; TEAR DROP CELLS 0; TOXIC GRANULATION 0
[2024-01-03 07:47] LABS: POTASSIUM 4.1 mmol/L (3.5-5.1)
[2024-01-03 07:48] LABS: ALBUMIN 1.7 g/dl (3.4-5.0); BLOOD UREA NITROGEN 67.8 mg/dL (7-18); CALCIUM 8.8 mg/dL (8.5-10.1); MAGNESIUM 2.2 mg/dL (1.8-2.4)
[2024-01-03 07:52] LABS: PHOSPHOROUS 3.5 mg/dL (2.5-4.9)
[2024-01-03 07:53] LABS: BILIRUBIN,TOTAL 0.5 mg/dL (0.2-1); TOT PROT 4.6 g/dl (6.4-8.2)
[2024-01-03 08:16] LABS: BASO % 0.1 % (0-2.0); EOS % 0.3 % (0-4.5); HEMATOCRIT 24.1 % (32.4-45.2); HEMOGLOBIN 7.8 GM/dL (10.7-15.3); LYMPH % 6.1 % (8-40); MCH 29.5 pg (25.7-33.7); MCHC 32.2 g/dl (32.0-36.0); MEAN CELL VOLUME 91.7 fl (80-96); MEAN PLT VOLUME 9.5 fl (7.5-11.1); MONO % 8.2 % (3.8-10.2); NEUT % 85.3 % (42.8-82.8); PLATELET COUNT 237 10^3/uL (134-434); RBC 2.63 M/mm3 (3.60-5.2); RDW 17.6 % (11.6-15.6); WHITE BLOOD COUNT 12.9 K/mm3 (4.0-10.0)
[2024-01-03] MEDS: ALBUMIN HUMAN 5% 500 ML IV SOLUTION IV ONE (09:33)
[2024-01-03] MEDS: FUROSEMIDE 40 MG/4 ML INJECTABLE VIAL IVPUSH ONE (12:32)
[2024-01-03] MEDS ORDERED: DEXTROSE 50%-WATER 25 GM/50 ML DISP.SYRIN ONE (16:45)
[2024-01-03] MEDS: DEXTROSE 10%-WATER - 1,000 ML IV SCH (17:01)
[2024-01-03] MEDS: DEXTROSE 50%-WATER - 25 GM/50 ML VIAL IVPUSH ONE ×2 (17:03→21:25)
[2024-01-03] MEDS: DEXTROSE 50%-WATER 25 GM/50 ML DISP.SYRIN IVPUSH ONE (21:24)
[2024-01-03] MEDS: DEXAMETHASONE SOD PHOSPHATE 10 MG/1 ML VIAL IVPUSH SCH (21:24)
[2024-01-04 06:30] LABS: HEMATOCRIT 22.8 % (32.4-45.2); HEMOGLOBIN 7.4 GM/dL (10.7-15.3); LYMPH % 3.1 % (8-40); MCH 29.8 pg (25.7-33.7); MCHC 32.4 g/dl (32.0-36.0); MEAN CELL VOLUME 91.9 fl (80-96); MEAN PLT VOLUME 9.5 fl (7.5-11.1); MONO % 1.5 % (3.8-10.2); NEUT % 95.4 % (42.8-82.8); PLATELET COUNT 227 10^3/uL (134-434); RBC 2.48 M/mm3 (3.60-5.2); RDW 17.5 % (11.6-15.6); WHITE BLOOD COUNT 12.3 K/mm3 (4.0-10.0)
[2024-01-04 06:43] LABS: POTASSIUM 4.3 mmol/L (3.5-5.1)
[2024-01-04 06:45] LABS: CALCIUM 8.7 mg/dL (8.5-10.1)
[2024-01-04 06:46] LABS: ALBUMIN 2.3 g/dl (3.4-5.0); BLOOD UREA NITROGEN 70.4 mg/dL (7-18); MAGNESIUM 2.1 mg/dL (1.8-2.4)
[2024-01-04 06:49] LABS: CREATININE 2.3 mg/dL (0.55-1.3); PHOSPHOROUS 3.7 mg/dL (2.5-4.9)
[2024-01-04 06:50] LABS: BILIRUBIN,TOTAL 0.7 mg/dL (0.2-1)
[2024-01-04 09:17] LABS: ANISOCYTOSIS 0; HELMET CELLS 0; HOWELL-JOLLY BODIES 0; MACROCYTOSIS 0; OVALOCYTE 0; ROULEAU 0; SICKELED CELLS 0; TARGET CELLS 0; TEAR DROP CELLS 0; TOXIC GRANULATION 0
[2024-01-05 07:53] LABS: HEMATOCRIT 24.1 % (32.4-45.2); HEMOGLOBIN 7.8 GM/dL (10.7-15.3); MCH 29.6 pg (25.7-33.7); MCHC 32.4 g/dl (32.0-36.0); MEAN CELL VOLUME 91.4 fl (80-96); MEAN PLT VOLUME 9.4 fl (7.5-11.1); PLATELET COUNT 269 10^3/uL (134-434); POTASSIUM 4.2 mmol/L (3.5-5.1); RBC 2.63 M/mm3 (3.60-5.2); RDW 17.8 % (11.6-15.6); WHITE BLOOD COUNT 13.5 K/mm3 (4.0-10.0)
[2024-01-05 07:57] LABS: ALBUMIN 2.4 g/dl (3.4-5.0); BLOOD UREA NITROGEN 78.2 mg/dL (7-18); CALCIUM 8.8 mg/dL (8.5-10.1); MAGNESIUM 2.3 mg/dL (1.8-2.4)
[2024-01-05 08:00] LABS: CREATININE 2.5 mg/dL (0.55-1.3); PHOSPHOROUS 3.6 mg/dL (2.5-4.9)
[2024-01-05 08:01] LABS: BILIRUBIN,TOTAL 0.7 mg/dL (0.2-1); TOT PROT 5.5 g/dl (6.4-8.2)
[2024-01-05 09:35] LABS: ANISOCYTOSIS 0; MACROCYTOSIS 1+
[2024-01-05] MEDS: ASCORBIC ACID 500 MG/5 ML UNIT DOSE CUP NGT SCH (09:39)
[2024-01-05] MEDS: ZINC SULFATE 220 MG CAPSULE (FP) NGT SCH (09:40)
[2024-01-05] MEDS: METOPROLOL TARTRATE 5 MG/5 ML VIAL IVPUSH PRN (09:40)
[2024-01-05] MEDS: AMINO ACIDS/PROTEIN HYDROLYS 30 ML LIQUID.PKT PO SCH (09:40)
[2024-01-06 07:32] LABS: POTASSIUM 4.3 mmol/L (3.5-5.1)
[2024-01-06 07:33] LABS: HEMATOCRIT 23.5 % (32.4-45.2); HEMOGLOBIN 7.5 GM/dL (10.7-15.3); MCH 29.3 pg (25.7-33.7); MEAN CELL VOLUME 91.3 fl (80-96); MEAN PLT VOLUME 9.3 fl (7.5-11.1); PLATELET COUNT 280 10^3/uL (134-434); RBC 2.57 M/mm3 (3.60-5.2); RDW 17.5 % (11.6-15.6)
[2024-01-06 07:40] LABS: ALBUMIN 2.3 g/dl (3.4-5.0); BLOOD UREA NITROGEN 90.3 mg/dL (7-18); CALCIUM 8.7 mg/dL (8.5-10.1); MAGNESIUM 2.5 mg/dL (1.8-2.4)
[2024-01-06 07:43] LABS: CREATININE 2.6 mg/dL (0.55-1.3); PHOSPHOROUS 3.3 mg/dL (2.5-4.9)
[2024-01-06 07:45] LABS: BILIRUBIN,TOTAL 1.1 mg/dL (0.2-1); TOT PROT 5.1 g/dl (6.4-8.2)
[2024-01-06 09:06] LABS: ANISOCYTOSIS 0; MACROCYTOSIS 0
[2024-01-06] MEDS: ALBUTEROL SO4 2.5/IPRATROPIUM 0.5 INH SOL 3 ML VIAL.NEB. NEB SCH (21:08)
[2024-01-07 06:57] LABS: HEMATOCRIT 24.2 % (32.4-45.2); HEMOGLOBIN 7.7 GM/dL (10.7-15.3); MCH 29.5 pg (25.7-33.7); MCHC 31.9 g/dl (32.0-36.0); MEAN CELL VOLUME 92.3 fl (80-96); MEAN PLT VOLUME 9.4 fl (7.5-11.1); PLATELET COUNT 271 10^3/uL (134-434); RBC 2.63 M/mm3 (3.60-5.2); RDW 17.7 % (11.6-15.6); WHITE BLOOD COUNT 12.7 K/mm3 (4.0-10.0)
[2024-01-07 07:07] LABS: POTASSIUM 4.7 mmol/L (3.5-5.1)
[2024-01-07 07:12] LABS: ALBUMIN 2.3 g/dl (3.4-5.0); CALCIUM 8.7 mg/dL (8.5-10.1)
[2024-01-07 07:13] LABS: BLOOD UREA NITROGEN 101.4 mg/dL (7-18); MAGNESIUM 2.6 mg/dL (1.8-2.4)
[2024-01-07 07:16] LABS: CREATININE 2.7 mg/dL (0.55-1.3); PHOSPHOROUS 3.7 mg/dL (2.5-4.9)
[2024-01-07 07:17] LABS: BILIRUBIN,TOTAL 0.7 mg/dL (0.2-1); TOT PROT 5.1 g/dl (6.4-8.2)
[2024-01-07 08:53] LABS: ANISOCYTOSIS 0; MACROCYTOSIS 0
[2024-01-07] MEDS ORDERED: PROPOFOL 200 MG/20 ML VIAL IVPUSH PRN (09:59)
[2024-01-07] MEDS ORDERED: RAPID SEQUENCE INTUBATION KIT NR ONE (10:03)
[2024-01-07] MEDS ORDERED: MIDAZOLAM HCL 5 MG/1 ML Single Dose Vial ONE (10:04)
[2024-01-07] MEDS: ROCURONIUM BROMIDE 50 MG/5 ML VIAL IV ONE (10:15)
[2024-01-07] MEDS ORDERED: PROPOFOL 1,000,000 MCG/100 ML VIAL ONE (10:24)
[2024-01-07] MEDS ORDERED: ROCURONIUM BROMIDE 50 MG/5 ML VIAL ONE (10:55)
[2024-01-07] MEDS: MIDAZOLAM HCL 5 MG/1 ML Single Dose Vial IVPUSH ONE (11:03)
[2024-01-08 09:59] LABS: MCH 29.4 pg (25.7-33.7); MCHC 32.2 g/dl (32.0-36.0); MEAN CELL VOLUME 91.2 fl (80-96); MEAN PLT VOLUME 9.4 fl (7.5-11.1); PLATELET COUNT 279 10^3/uL (134-434); RBC 3.07 M/mm3 (3.60-5.2); RDW 17.6 % (11.6-15.6); WHITE BLOOD COUNT 12.9 K/mm3 (4.0-10.0)
[2024-01-08 10:21] LABS: CHLORIDE 111 mmol/L (98-107); POTASSIUM 4.7 mmol/L (3.5-5.1); SODIUM 143 mmol/L (136-145)
[2024-01-08 10:22] LABS: ANISOCYTOSIS 0; MACROCYTOSIS 0
[2024-01-08 10:24] LABS: CALCIUM 8.8 mg/dL (8.5-10.1)
[2024-01-08 10:25] LABS: ALBUMIN 2.2 g/dl (3.4-5.0); ANION GAP 8 mmol/L (4-13); CO2 25 mmol/L (21-32); GLUCOSE,RANDOM 223 mg/dL (74-106); MAGNESIUM 2.9 mg/dL (1.8-2.4)
[2024-01-08 10:28] LABS: CREATININE 3.2 mg/dL (0.55-1.3); PHOSPHOROUS 4.9 mg/dL (2.5-4.9); SGOT/AST 11 U/L (15-37); SGPT/ALT 24 U/L (13-61)
[2024-01-08 10:29] LABS: BILIRUBIN,TOTAL 0.7 mg/dL (0.2-1); TOT PROT 5.2 g/dl (6.4-8.2)
[2024-01-08 10:31] LABS: ALK PHOS 92 U/L (45-117)
[2024-01-08 10:33] LABS: BLOOD UREA NITROGEN 114.8 mg/dL (7-18)
[2024-01-08] MEDS ORDERED: PROPOFOL 200 MG/20 ML VIAL IVPUSH PRN (14:48)
[2024-01-08] MEDS ORDERED: ALBUTEROL SO4 HFA INHALER IH PRN (14:48)
[2024-01-08] MEDS: SODIUM CHLORIDE 0.45% 1,000 ML IV SCH ×2 (15:43→17:01)
[2024-01-08] MEDS: ALBUTEROL SO4 2.5/IPRATROPIUM 0.5 INH SOL 3 ML VIAL.NEB. NEB SCH (16:01)
[2024-01-08] MEDS: INSULIN ASPART SLIDING SCALE (NOVOLOG) 1 VIAL SQ SCH (17:00)
[2024-01-08] MEDS: SODIUM CHLORIDE 1,000 ML IV SCH (17:05)
[2024-01-08] MEDS ORDERED: DEXAMETHASONE SOD PHOSPHATE 10 MG/1 ML VIAL IVPUSH SCH (18:00)
[2024-01-08] MEDS: PROPOFOL 1,000,000 MCG/100 ML VIAL IVPB SCH (20:31)
[2024-01-08] MEDS: METOPROLOL TARTRATE 50 MG TABLET (FP) PO SCH (21:37)
[2024-01-08] MEDS: PANTOPRAZOLE SODIUM 40 MG VIAL IVPUSH SCH (21:37)
[2024-01-08] MEDS ORDERED: CHLORHEXIDINE GLUCONATE 4% CLEANSER FOR DECOLONIZATION TP SCH (22:00)
[2024-01-09] MEDS: AMINO ACIDS/PROTEIN HYDROLYS 30 ML LIQUID.PKT PO SCH (09:31)
[2024-01-09] MEDS: ASCORBIC ACID 500 MG/5 ML UNIT DOSE CUP NGT SCH (09:54)
[2024-01-09] MEDS: ZINC SULFATE 220 MG CAPSULE (FP) NGT SCH (09:54)
[2024-01-09] MEDS: SILVER SULFADIAZINE 1% TOP CREAM 400 GM JAR TP SCH (13:43)
[2024-01-09 15:45] LABS: EPI CELLS >36 /uL (0-25.1); HYALINE CASTS 3 /uL (0-3.1); PH,URINE 5.5 (5.0-8.0); URINE APPEARANCE CLOUDY; URINE BACTERIA 1486 /uL (0-1359); URINE BILIRUBIN NEGATIVE (NEGATIVE); URINE COLOR YELLOW; URINE GLUCOSE (UA) NEGATIVE (NEGATIVE); URINE KETONE NEGATIVE (NEGATIVE); URINE LEUK ESTERASE 2+ (NEGATIVE); URINE NITRITE NEGATIVE (NEGATIVE); URINE PROTEIN 1+ (NEGATIVE); URINE UROBILINOGEN 0.2 mg/dL (0.2-1.0); URINE WBC 272 /uL (0-25.8)
[2024-01-09 18:34] LABS: URINE RBC 55.2 /uL (0-23.9); YEAST POSITIVE (NEGATIVE)
[2024-01-10] MEDS: SCOPOLAMINE HYDROBROMIDE 1 PATCH PATCH.TD72 TD SCH (10:54)
[2024-01-11] MEDS: METOPROLOL TARTRATE 5 MG/5 ML VIAL IVPB PRN (11:41)
[2024-01-11 13:09] LABS: HEMATOCRIT 25.1 % (32.4-45.2); HEMOGLOBIN 7.7 GM/dL (10.7-15.3); MCH 28.8 pg (25.7-33.7); MCHC 30.8 g/dl (32.0-36.0); MEAN CELL VOLUME 93.4 fl (80-96); MEAN PLT VOLUME 9.7 fl (7.5-11.1); PLATELET COUNT 198 10^3/uL (134-434); RBC 2.69 M/mm3 (3.60-5.2); RDW 18.5 % (11.6-15.6); WHITE BLOOD COUNT 14.6 K/mm3 (4.0-10.0)
[2024-01-11] MEDS: DEXTROSE 5%-NORMAL SALINE 1,000 ML IV SCH (13:27)
[2024-01-11 13:29] LABS: BLOOD UREA NITROGEN 93.6 mg/dL (7-18); CALCIUM 8.4 mg/dL (8.5-10.1)
[2024-01-11 13:34] LABS: BILIRUBIN,TOTAL 0.8 mg/dL (0.2-1); TOT PROT 4.8 g/dl (6.4-8.2)
[2024-01-11 13:52] LABS: ANISOCYTOSIS 2+; MACROCYTOSIS 0; OVALOCYTE 1+
[2024-01-11] MEDS: DEXTROSE 5%-WATER - 1,000 ML IV SCH (18:01)
[2024-01-11] MEDS: METOPROLOL TARTRATE 50 MG TABLET (FP) PO SCH (22:08)
[2024-01-12] MEDS: ACETAMINOPHEN 1000 MG/100 ML BAG IVPB ONE (02:40)
[2024-01-12] MEDS: ATORVASTATIN CA 40 MG TABLET (FP) GT SCH (21:54)
[2024-01-13] MEDS: DEXTROSE 5%-0.45% SALINE 1,000 ML IV SCH (12:19)
[2024-01-13 13:08] LABS: HEMATOCRIT 26.4 % (32.4-45.2); HEMOGLOBIN 8.1 GM/dL (10.7-15.3); MCH 29.2 pg (25.7-33.7); MCHC 30.6 g/dl (32.0-36.0); MEAN CELL VOLUME 95.3 fl (80-96); MEAN PLT VOLUME 10.3 fl (7.5-11.1); PLATELET COUNT 185 10^3/uL (134-434); RBC 2.77 M/mm3 (3.60-5.2); RDW 18.4 % (11.6-15.6)
[2024-01-13 13:18] LABS: POTASSIUM 3.9 mmol/L (3.5-5.1)
[2024-01-13 13:36] LABS: BLOOD UREA NITROGEN 82.9 mg/dL (7-18); CALCIUM 8.7 mg/dL (8.5-10.1); MAGNESIUM 2.2 mg/dL (1.8-2.4)
[2024-01-13 13:39] LABS: CREATININE 2.7 mg/dL (0.55-1.3)
[2024-01-13 13:40] LABS: PHOSPHOROUS 3.3 mg/dL (2.5-4.9); TOT PROT 5.1 g/dl (6.4-8.2)
[2024-01-13] MEDS ORDERED: FENTANYL CITRATE/PF 50 MCG/ML VIAL ONE (15:02)
[2024-01-13] MEDS: FENTANYL CITRATE/PF 50 MCG/ML VIAL IVPUSH ONE (15:07)
[2024-01-13 15:11] LABS: PLATELET ESTIMATE ADEQUATE
[2024-01-13] MEDS: ACETAMINOPHEN 650 MG/20.3 ML ORAL SOLUTION (CUPS) GT ONE (17:08)
[2024-01-13] MEDS: KCL 10 MEQ IVPB 10 MEQ/100 ML INFUS.BAG IVPB SCH (17:09)
[2024-01-13] MEDS: POTASSIUM CHLORIDE ORAL LIQUID 20 MEQ/15 ML GT ONE (17:09)
[2024-01-13] MEDS ORDERED: HYDROmorphone HCL CARPU-JECT 2 MG/1 ML DISP.SYRIN IVPUSH PRN (19:23)
[2024-01-14] MEDS: ACETAMINOPHEN 1000 MG/100 ML BAG IVPB PRN (11:18)
[2024-01-14 11:48] LABS: POTASSIUM 3.9 mmol/L (3.5-5.1)
[2024-01-14 11:51] LABS: CALCIUM 8.2 mg/dL (8.5-10.1)
[2024-01-14 11:53] LABS: BLOOD UREA NITROGEN 75.5 mg/dL (7-18); MAGNESIUM 2.3 mg/dL (1.8-2.4)
[2024-01-14 11:55] LABS: CREATININE 2.6 mg/dL (0.55-1.3); PHOSPHOROUS 3.1 mg/dL (2.5-4.9)
[2024-01-14] MEDS: DESMOPRESSIN ACETATE IVPB ONE (15:20)
[2024-01-14] MEDS: SODIUM CHLORIDE IVPB ONE (15:20)
[2024-01-14 15:29] LABS: BASO % 0.2 % (0-2.0); EOS % 0.8 % (0-4.5); HEMATOCRIT 24.4 % (32.4-45.2); HEMOGLOBIN 7.4 GM/dL (10.7-15.3); LYMPH % 9.1 % (8-40); MCH 28.7 pg (25.7-33.7); MCHC 30.4 g/dl (32.0-36.0); MEAN CELL VOLUME 94.6 fl (80-96); MEAN PLT VOLUME 10.2 fl (7.5-11.1); MONO % 5.8 % (3.8-10.2); NEUT % 84.1 % (42.8-82.8); PLATELET COUNT 101 10^3/uL (134-434); RBC 2.58 M/mm3 (3.60-5.2); RDW 18.5 % (11.6-15.6); WHITE BLOOD COUNT 11.5 K/mm3 (4.0-10.0)
[2024-01-14 21:06] LABS: BASO % 0.3 % (0-2.0); EOS % 0.6 % (0-4.5); HEMATOCRIT 25.6 % (32.4-45.2); HEMOGLOBIN 7.9 GM/dL (10.7-15.3); LYMPH % 2.8 % (8-40); MCH 28.7 pg (25.7-33.7); MCHC 30.9 g/dl (32.0-36.0); MEAN CELL VOLUME 92.9 fl (80-96); MEAN PLT VOLUME 10.5 fl (7.5-11.1); MONO % 6.3 % (3.8-10.2); PLATELET COUNT 181 10^3/uL (134-434); RBC 2.76 M/mm3 (3.60-5.2); RDW 18.5 % (11.6-15.6); WHITE BLOOD COUNT 15.8 K/mm3 (4.0-10.0)
[2024-01-14 21:20] LABS: INR 1.18 (0.83-1.09); PROTHROMBIN TIME (PATIENT) 13.5 SEC (9.7-13.0)
[2024-01-14 21:23] LABS: POTASSIUM 3.5 mmol/L (3.5-5.1)
[2024-01-14 21:25] LABS: CALCIUM 8.6 mg/dL (8.5-10.1)
[2024-01-14 21:26] LABS: BLOOD UREA NITROGEN 76.5 mg/dL (7-18)
[2024-01-14 21:29] LABS: CREATININE 2.5 mg/dL (0.55-1.3)
[2024-01-14 21:31] LABS: BILIRUBIN,TOTAL 0.8 mg/dL (0.2-1); TOT PROT 4.9 g/dl (6.4-8.2)
[2024-01-14] MEDS: MUPIROCIN 2% TOPICAL OINTMENT FOR DECOLONIZATION NS SCH (21:46)
[2024-01-14] MEDS: CHLORHEXIDINE GLUCONATE 4% CLEANSER FOR DECOLONIZATION TP SCH (21:46)
[2024-01-14] MEDS: DEXTROSE 5%-WATER - 1,000 ML IV SCH (21:47)
[2024-01-14] MEDS ORDERED: METOPROLOL TARTRATE 5 MG/5 ML VIAL IVPB PRN (23:45)
[2024-01-15] MEDS: INSULIN ASPART SLIDING SCALE (NOVOLOG) 1 VIAL SQ SCH ×2 (07:07→17:06)
[2024-01-15] MEDS ORDERED: METOPROLOL TARTRATE 50 MG TABLET (FP) PO SCH (10:39)
[2024-01-15] MEDS: AMINO ACIDS/PROTEIN HYDROLYS 30 ML LIQUID.PKT PO SCH (11:12)
[2024-01-15] MEDS: ASCORBIC ACID 500 MG/5 ML UNIT DOSE CUP NGT SCH (11:12)
[2024-01-15] MEDS: ZINC SULFATE 220 MG CAPSULE (FP) NGT SCH (11:12)
[2024-01-15] MEDS: PANTOPRAZOLE SODIUM 40 MG VIAL IVPUSH SCH ×2 (11:12→21:13)
[2024-01-15] MEDS: SILVER SULFADIAZINE 1% TOP CREAM 400 GM JAR TP SCH (11:13)
[2024-01-15] MEDS: METOPROLOL TARTRATE 25 MG TABLET (FP) PO SCH (11:35)
[2024-01-15] MEDS: METOPROLOL TARTRATE 25 MG TABLET (FP) GT ONE (11:36)
[2024-01-15] MEDS: METOPROLOL TARTRATE 50 MG TABLET (FP) GT ONE (12:29)
[2024-01-15] MEDS ORDERED: DEXTROSE 5%-WATER - 1,000 ML IV SCH (13:43)
[2024-01-15] MEDS ORDERED: METOPROLOL TARTRATE 5 MG/5 ML VIAL IVPB PRN (15:36)
[2024-01-15] MEDS: POTASSIUM CHLORIDE ORAL LIQUID 20 MEQ/15 ML PO ONE (18:26)
[2024-01-15] MEDS: METOPROLOL TARTRATE 50 MG TABLET (FP) GT SCH (21:08)
[2024-01-15] MEDS: ATORVASTATIN CA 40 MG TABLET (FP) GT SCH (21:08)
[2024-01-15] MEDS ORDERED: ATORVASTATIN CA 40 MG TABLET (FP) GT SCH (22:00)
[2024-01-15] MEDS ORDERED: MUPIROCIN 2% TOPICAL OINTMENT FOR DECOLONIZATION NS SCH (22:00)
[2024-01-15] MEDS ORDERED: CHLORHEXIDINE GLUCONATE 4% CLEANSER FOR DECOLONIZATION TP SCH (22:00)
[2024-01-16] MEDS ORDERED: ACETAMINOPHEN 1000 MG/100 ML BAG IVPB PRN (00:49)
[2024-01-16] MEDS: ACETAMINOPHEN 1000 MG/100 ML BAG IVPB ONE (02:43)
[2024-01-16] MEDS: AMINO ACIDS/PROTEIN HYDROLYS 30 ML LIQUID.PKT PO SCH (08:45)
[2024-01-16] MEDS: ZINC SULFATE 220 MG CAPSULE (FP) NGT SCH (10:35)
[2024-01-16] MEDS: ASCORBIC ACID 500 MG/5 ML UNIT DOSE CUP NGT SCH (10:36)
[2024-01-16] MEDS ORDERED: SCOPOLAMINE HYDROBROMIDE 1 PATCH PATCH.TD72 TD SCH (11:15)
[2024-01-16 11:42] LABS: HEMATOCRIT 23.3 % (32.4-45.2); HEMOGLOBIN 7.1 GM/dL (10.7-15.3); MCH 29.2 pg (25.7-33.7); MCHC 30.6 g/dl (32.0-36.0); MEAN CELL VOLUME 95.4 fl (80-96); MEAN PLT VOLUME 10.6 fl (7.5-11.1); PLATELET COUNT 144 10^3/uL (134-434); RBC 2.44 M/mm3 (3.60-5.2); RDW 18.4 % (11.6-15.6); WHITE BLOOD COUNT 15.8 K/mm3 (4.0-10.0)
[2024-01-16 11:53] LABS: POTASSIUM 3.9 mmol/L (3.5-5.1)
[2024-01-16 11:55] LABS: CALCIUM 8.5 mg/dL (8.5-10.1)
[2024-01-16 11:56] LABS: ALBUMIN 1.8 g/dl (3.4-5.0); BLOOD UREA NITROGEN 75.4 mg/dL (7-18); MAGNESIUM 2.2 mg/dL (1.8-2.4)
[2024-01-16] MEDS: SCOPOLAMINE HYDROBROMIDE 1 PATCH PATCH.TD72 TD SCH (11:58)
[2024-01-16 11:59] LABS: CREATININE 2.7 mg/dL (0.55-1.3); PHOSPHOROUS 2.6 mg/dL (2.5-4.9)
[2024-01-16 12:01] LABS: BILIRUBIN,TOTAL 0.8 mg/dL (0.2-1); TOT PROT 4.8 g/dl (6.4-8.2)
[2024-01-16] MEDS: SILVER SULFADIAZINE 1% TOP CREAM 400 GM JAR TP SCH (15:59)
[2024-01-16] MEDS: INSULIN ASPART SLIDING SCALE (NOVOLOG) 1 VIAL SQ SCH (17:05)
[2024-01-17 11:28] LABS: HEMOGLOBIN 7.8 GM/dL (10.7-15.3); MCH 28.9 pg (25.7-33.7); MEAN CELL VOLUME 96.2 fl (80-96); MEAN PLT VOLUME 10.8 fl (7.5-11.1); PLATELET COUNT 163 10^3/uL (134-434); RDW 18.9 % (11.6-15.6); WHITE BLOOD COUNT 19.5 K/mm3 (4.0-10.0)
[2024-01-17 12:31] LABS: ANISOCYTOSIS 0; MACROCYTOSIS 0; OVALOCYTE 1+
[2024-01-17] MEDS: DEXTROSE 5%-NORMAL SALINE 1,000 ML IV SCH (13:27)
[2024-01-17] MEDS: NYSTATIN 100,000 UNIT/GM TOPICAL CREAM 15 GM TUBE TP SCH (13:27)
[2024-01-18 13:30] LABS: HEMATOCRIT 23.9 % (32.4-45.2); HEMOGLOBIN 7.2 GM/dL (10.7-15.3); MCH 28.5 pg (25.7-33.7); MCHC 30.4 g/dl (32.0-36.0); MEAN PLT VOLUME 10.4 fl (7.5-11.1); PLATELET COUNT 154 10^3/uL (134-434); RBC 2.54 M/mm3 (3.60-5.2); RDW 18.5 % (11.6-15.6)
[2024-01-18 13:37] LABS: POTASSIUM 3.7 mmol/L (3.5-5.1)
[2024-01-18 13:42] LABS: BLOOD UREA NITROGEN 73.1 mg/dL (7-18); CALCIUM 8.4 mg/dL (8.5-10.1)
[2024-01-18 13:43] LABS: ALBUMIN 1.7 g/dl (3.4-5.0)
[2024-01-18 13:46] LABS: CREATININE 2.7 mg/dL (0.55-1.3)
[2024-01-18 13:47] LABS: BILIRUBIN,TOTAL 0.6 mg/dL (0.2-1); TOT PROT 4.9 g/dl (6.4-8.2)
[2024-01-18 14:00] LABS: ANISOCYTOSIS 1+; MACROCYTOSIS 0
[2024-01-18] MEDS: KCL 10 MEQ IVPB 10 MEQ/100 ML INFUS.BAG IVPB SCH (22:02)
[2024-01-19 11:40] LABS: HEMATOCRIT 22.9 % (32.4-45.2); MCH 28.8 pg (25.7-33.7); MCHC 30.4 g/dl (32.0-36.0); MEAN CELL VOLUME 94.9 fl (80-96); MEAN PLT VOLUME 10.3 fl (7.5-11.1); PLATELET COUNT 146 10^3/uL (134-434); RBC 2.41 M/mm3 (3.60-5.2); RDW 18.6 % (11.6-15.6); WHITE BLOOD COUNT 13.7 K/mm3 (4.0-10.0)
[2024-01-19 11:43] LABS: ADD RBC MORPHOLOGY YES
[2024-01-19 11:48] LABS: HEMOGLOBIN 6.9 GM/dL (10.7-15.3)
[2024-01-19 12:17] LABS: POTASSIUM 3.7 mmol/L (3.5-5.1)
[2024-01-19 12:27] LABS: TOT PROT 4.4 g/dl (6.4-8.2)
[2024-01-19 12:30] LABS: ALBUMIN 1.6 g/dl (3.4-5.0); BLOOD UREA NITROGEN 63.4 mg/dL (7-18); CALCIUM 7.4 mg/dL (8.5-10.1)
[2024-01-19 12:31] LABS: MAGNESIUM 2.2 mg/dL (1.8-2.4)
[2024-01-19 12:33] LABS: CREATININE 2.3 mg/dL (0.55-1.3)
[2024-01-19 12:34] LABS: BILIRUBIN,TOTAL 0.5 mg/dL (0.2-1); PHOSPHOROUS 1.9 mg/dL (2.5-4.9)
[2024-01-19 13:30] LABS: ANISOCYTOSIS 0; MACROCYTOSIS 0
[2024-01-19 13:34] LABS: PLATELET ESTIMATE ADEQUATE
[2024-01-19] MEDS: POTASSIUM CHLORIDE 10 MEQ in DEXTROSE 5%-WATER - 1,000 ML IV SCH (14:42)
[2024-01-19] MEDS: POTASSIUM PHOSPHATE 30 MM in DEXTROSE 5%-WATER - 500 ML IVPB ONE (16:26)
[2024-01-20 04:24] LABS: BASO % 0.2 % (0-2.0); EOS % 1.8 % (0-4.5); HEMATOCRIT 22.8 % (32.4-45.2); MCH 28.5 pg (25.7-33.7); MCHC 30.5 g/dl (32.0-36.0); MEAN CELL VOLUME 93.6 fl (80-96); MEAN PLT VOLUME 10.3 fl (7.5-11.1); PLATELET COUNT 149 10^3/uL (134-434); RBC 2.44 M/mm3 (3.60-5.2); RDW 18.6 % (11.6-15.6); WHITE BLOOD COUNT 12.4 K/mm3 (4.0-10.0)
[2024-01-20 04:30] LABS: HEMOGLOBIN 6.9 GM/dL (10.7-15.3)
[2024-01-20 05:02] LABS: POTASSIUM 4.5 mmol/L (3.5-5.1)
[2024-01-20 05:05] LABS: ALBUMIN 1.7 g/dl (3.4-5.0); BLOOD UREA NITROGEN 73.1 mg/dL (7-18); CALCIUM 8.3 mg/dL (8.5-10.1); MAGNESIUM 2.4 mg/dL (1.8-2.4)
[2024-01-20 05:08] LABS: CREATININE 2.6 mg/dL (0.55-1.3)
[2024-01-20 05:10] LABS: BILIRUBIN,TOTAL 0.6 mg/dL (0.2-1); TOT PROT 4.8 g/dl (6.4-8.2)
[2024-01-20] MEDS: DEXTROSE 5%-WATER - 1,000 ML IV SCH (19:14)
[2024-01-20] MEDS ORDERED: INSULIN ASPART SLIDING SCALE (NOVOLOG) 1 VIAL SQ ONE (22:12)
[2024-01-21] MEDS: BACITRACIN ZINC 15 GM TUBE TOPICAL OINTMENT TP SCH (17:49)
[2024-01-21 19:57] LABS: POTASSIUM 4.4 mmol/L (3.5-5.1)
[2024-01-21 19:59] LABS: CALCIUM 7.8 mg/dL (8.5-10.1)
[2024-01-21 20:00] LABS: ALBUMIN 1.8 g/dl (3.4-5.0); BLOOD UREA NITROGEN 65.4 mg/dL (7-18); MAGNESIUM 2.3 mg/dL (1.8-2.4)
[2024-01-21 20:03] LABS: CREATININE 2.5 mg/dL (0.55-1.3)
[2024-01-21 20:04] LABS: PHOSPHOROUS 2.9 mg/dL (2.5-4.9)
[2024-01-21 20:05] LABS: BILIRUBIN,TOTAL 0.6 mg/dL (0.2-1); TOT PROT 5.4 g/dl (6.4-8.2)
[2024-01-21 20:14] LABS: BASO % 0.1 % (0-2.0); EOS % 2.9 % (0-4.5); HEMATOCRIT 33.1 % (32.4-45.2); HEMOGLOBIN 10.2 GM/dL (10.7-15.3); LYMPH % 6.3 % (8-40); MCH 29.1 pg (25.7-33.7); MCHC 30.9 g/dl (32.0-36.0); MEAN CELL VOLUME 94.2 fl (80-96); MEAN PLT VOLUME 10.2 fl (7.5-11.1); MONO % 5.9 % (3.8-10.2); NEUT % 84.8 % (42.8-82.8); PLATELET COUNT 114 10^3/uL (134-434); RBC 3.51 M/mm3 (3.60-5.2); RDW 18.6 % (11.6-15.6); WHITE BLOOD COUNT 10.6 K/mm3 (4.0-10.0)
[2024-01-22 12:05] LABS: BASO % 0.5 % (0-2.0); EOS % 4.8 % (0-4.5); HEMATOCRIT 28.5 % (32.4-45.2); LYMPH % 6.7 % (8-40); MCH 29.1 pg (25.7-33.7); MCHC 31.7 g/dl (32.0-36.0); MEAN CELL VOLUME 91.8 fl (80-96); MONO % 5.7 % (3.8-10.2); NEUT % 82.3 % (42.8-82.8); PLATELET COUNT 122 10^3/uL (134-434); RBC 3.11 M/mm3 (3.60-5.2); RDW 17.2 % (11.6-15.6); WHITE BLOOD COUNT 8.1 K/mm3 (4.0-10.0)
[2024-01-22 12:25] LABS: ALBUMIN 1.6 g/dl (3.4-5.0); CALCIUM 7.6 mg/dL (8.5-10.1)
[2024-01-22 12:26] LABS: MAGNESIUM 2.3 mg/dL (1.8-2.4)
[2024-01-22 12:29] LABS: CREATININE 2.4 mg/dL (0.55-1.3); PHOSPHOROUS 2.6 mg/dL (2.5-4.9)
[2024-01-22 12:30] LABS: BILIRUBIN,TOTAL 0.6 mg/dL (0.2-1); TOT PROT 4.8 g/dl (6.4-8.2)
[2024-01-22] MEDS: BACITRACIN ZINC 15 GM TUBE TOPICAL OINTMENT TP SCH (13:01)
[2024-01-22] MEDS: POTASSIUM CHLORIDE ORAL LIQUID 20 MEQ/15 ML GT SCH (14:05)
[2024-01-22] MEDS: FUROSEMIDE 40 MG/5 ML UNIT-DOSE CUP GT SCH (17:30)
[2024-01-22] MEDS: PANTOPRAZOLE 40 MG TABLET PO SCH (21:35)
[2024-01-23] MEDS: ACETAMINOPHEN 650 MG/20.3 ML ORAL SOLUTION (CUPS) PO PRN (00:29)
[2024-01-23 10:50] LABS: POTASSIUM 3.8 mmol/L (3.5-5.1)
[2024-01-23 10:51] LABS: BLOOD UREA NITROGEN 65.3 mg/dL (7-18); CALCIUM 7.6 mg/dL (8.5-10.1)
[2024-01-23 10:55] LABS: CREATININE 2.3 mg/dL (0.55-1.3)
[2024-01-24] MEDS: FAMOTIDINE 20 MG/2.5 ML ORAL LIQUID PEG SCH (13:55)
[2024-01-25 09:53] LABS: HEMATOCRIT 24.8 % (32.4-45.2); MCH 29.5 pg (25.7-33.7); MCHC 32.3 g/dl (32.0-36.0); MEAN CELL VOLUME 91.4 fl (80-96); MEAN PLT VOLUME 9.9 fl (7.5-11.1); PLATELET COUNT 117 10^3/uL (134-434); RBC 2.72 M/mm3 (3.60-5.2); RDW 17.3 % (11.6-15.6); WHITE BLOOD COUNT 4.2 K/mm3 (4.0-10.0)
[2024-01-25 10:27] LABS: POTASSIUM 3.9 mmol/L (3.5-5.1)
[2024-01-25 10:33] LABS: ALBUMIN 1.4 g/dl (3.4-5.0); BLOOD UREA NITROGEN 61.5 mg/dL (7-18); CALCIUM 7.4 mg/dL (8.5-10.1); MAGNESIUM 2.1 mg/dL (1.8-2.4)
[2024-01-25 10:36] LABS: CREATININE 2.1 mg/dL (0.55-1.3); PHOSPHOROUS 2.4 mg/dL (2.5-4.9)
[2024-01-25 10:37] LABS: ANISOCYTOSIS 0; MACROCYTOSIS 0
[2024-01-25 10:38] LABS: BILIRUBIN,TOTAL 0.5 mg/dL (0.2-1); TOT PROT 4.6 g/dl (6.4-8.2)
[2024-01-25] MEDS: NAPH,MB-DB/K PH,MBDB POWDER PACKET GT ONE (13:19)
[2024-01-25] MEDS: BACITRACIN ZINC 15 GM TUBE TOPICAL OINTMENT TP SCH (13:19)
[2024-01-26 11:19] LABS: BASO % 0.4 % (0-2.0); EOS % 6.4 % (0-4.5); HEMATOCRIT 27.2 % (32.4-45.2); HEMOGLOBIN 8.6 GM/dL (10.7-15.3); LYMPH % 14.6 % (8-40); MCH 29.1 pg (25.7-33.7); MCHC 31.6 g/dl (32.0-36.0); MEAN CELL VOLUME 92.4 fl (80-96); MEAN PLT VOLUME 10.1 fl (7.5-11.1); MONO % 11.3 % (3.8-10.2); NEUT % 67.3 % (42.8-82.8); PLATELET COUNT 138 10^3/uL (134-434); RBC 2.95 M/mm3 (3.60-5.2); RDW 16.4 % (11.6-15.6); WHITE BLOOD COUNT 3.4 K/mm3 (4.0-10.0)
[2024-01-26 11:33] LABS: POTASSIUM 4.2 mmol/L (3.5-5.1)
[2024-01-26 11:39] LABS: CALCIUM 7.3 mg/dL (8.5-10.1)
[2024-01-26 11:40] LABS: ALBUMIN 1.4 g/dl (3.4-5.0); BLOOD UREA NITROGEN 57.3 mg/dL (7-18)
[2024-01-26 11:41] LABS: PHOSPHOROUS 2.6 mg/dL (2.5-4.9)
[2024-01-26 11:42] LABS: BILIRUBIN,TOTAL 0.5 mg/dL (0.2-1)
[2024-01-26 11:43] LABS: TOT PROT 4.9 g/dl (6.4-8.2)
[2024-01-26] MEDS ORDERED: DEXTROSE 50%-WATER 25 GM/50 ML DISP.SYRIN ONE (12:09)
[2024-01-26] MEDS: DEXTROSE 50%-WATER 25 GM/50 ML DISP.SYRIN IVPUSH ONE (12:16)
[2024-01-26] MEDS: FUROSEMIDE 40 MG/5 ML UNIT-DOSE CUP GT SCH (15:39)
[2024-01-26] MEDS: NAPH,MB-DB/K PH,MBDB POWDER PACKET GT ONE (19:57)
[2024-01-27] MEDS: HYDROmorphone HCl 2 MG/ML VIAL IVPUSH ONE (13:14)
[2024-01-27] MEDS: CLINDAMYCIN 600MG PREMIX IVPB 600 MG/50 ML BAG IVPB ONE (13:15)
[2024-01-27] MEDS: ACETAMINOPHEN 1000 MG/100 ML BAG IVPB ONE (14:33)
[2024-01-27] MEDS: CLINDAMYCIN HCL 150 MG CAPSULE (FP) GT SCH (18:25)
[2024-01-27] MEDS: BACITRACIN ZINC 15 GM TUBE TOPICAL OINTMENT TP SCH (21:15)
[2024-01-28 11:15] LABS: POTASSIUM 4.3 mmol/L (3.5-5.1)
[2024-01-28 11:18] LABS: ALBUMIN 1.5 g/dl (3.4-5.0); BLOOD UREA NITROGEN 59.7 mg/dL (7-18); CALCIUM 7.8 mg/dL (8.5-10.1); MAGNESIUM 2.1 mg/dL (1.8-2.4)
[2024-01-28 11:23] LABS: BILIRUBIN,TOTAL 0.5 mg/dL (0.2-1); TOT PROT 5.2 g/dl (6.4-8.2)
[2024-01-29 14:06] LABS: BASO % 0.2 % (0-2.0); EOS % 3.5 % (0-4.5); HEMATOCRIT 25.3 % (32.4-45.2); HEMOGLOBIN 7.9 GM/dL (10.7-15.3); LYMPH % 9.8 % (8-40); MCH 28.9 pg (25.7-33.7); MCHC 31.2 g/dl (32.0-36.0); MEAN CELL VOLUME 92.4 fl (80-96); MONO % 14.6 % (3.8-10.2); NEUT % 71.9 % (42.8-82.8); RBC 2.73 M/mm3 (3.60-5.2); RDW 16.4 % (11.6-15.6); WHITE BLOOD COUNT 5.7 K/mm3 (4.0-10.0)
[2024-01-29 14:26] LABS: POTASSIUM 4.9 mmol/L (3.5-5.1)
[2024-01-29 14:27] LABS: PLATELET ESTIMATE ADEQUATE
[2024-01-29 14:30] LABS: ALBUMIN 1.5 g/dl (3.4-5.0); CALCIUM 8.1 mg/dL (8.5-10.1); MAGNESIUM 2.1 mg/dL (1.8-2.4)
[2024-01-29 14:31] LABS: BLOOD UREA NITROGEN 62.5 mg/dL (7-18)
[2024-01-29 14:33] LABS: CREATININE 2.1 mg/dL (0.55-1.3); PHOSPHOROUS 3.6 mg/dL (2.5-4.9)
[2024-01-29 14:34] LABS: BILIRUBIN,TOTAL 0.4 mg/dL (0.2-1); TOT PROT 5.3 g/dl (6.4-8.2)
[2024-01-29 17:49] VITALS: BP 115/95; PULSE 86; RESP 18; TEMP 98.6
== END 2024-01-29 18:42 | DRG 4 ==
LOC: JER 12:17 → JERBED 17:44 → J8W 19:07 → JICU 12-22 18:26 → J5S 01-08 14:32 → JICU 01-14 15:47 → J5S 01-15 15:02 → J6W 01-20 10:22
PROVIDERS: ADMIT Internal Medicine
PROC: 06HN33Z Insertion of Infusion Device into Left Femoral Vein, Percutaneous Approach (ICD-10-PCS; 2023-12-22)
PROC: B54CZZA Ultrasonography of Left Lower Extremity Veins, Guidance (ICD-10-PCS; 2023-12-22)
PROC: 4A133B1 Monitoring of Arterial Pressure, Peripheral, Percutaneous Approach (ICD-10-PCS; 2023-12-22)
PROC: 4A133J1 Monitoring of Arterial Pulse, Peripheral, Percutaneous Approach (ICD-10-PCS; 2023-12-22)
PROC: 0DJ08ZZ Inspection of Upper Intestinal Tract, Via Natural or Artificial Opening Endoscopic (ICD-10-PCS; principal; 2023-12-22 15:00)
PROC: 05HD33Z Insertion of Infusion Device into Right Cephalic Vein, Percutaneous Approach (ICD-10-PCS; 2023-12-29)
PROC: B54MZZA Ultrasonography of Right Upper Extremity Veins, Guidance (ICD-10-PCS; 2023-12-29)
PROC: 5A1955Z Respiratory Ventilation, Greater than 96 Consecutive Hours (ICD-10-PCS; 2024-01-01)
PROC: 0BH17EZ Insertion of Endotracheal Airway into Trachea, Via Natural or Artificial Opening (ICD-10-PCS; 2024-01-01)
PROC: 0B113F4 Bypass Trachea to Cutaneous with Tracheostomy Device, Percutaneous Approach (ICD-10-PCS; 2024-01-07)
PROC: 0BJ08ZZ Inspection of Tracheobronchial Tree, Via Natural or Artificial Opening Endoscopic (ICD-10-PCS; 2024-01-07)
PROC: 0DH63UZ Insertion of Feeding Device into Stomach, Percutaneous Approach (ICD-10-PCS; 2024-01-13)
PROC: 0BDJ8ZX Extraction of Left Lower Lung Lobe, Via Natural or Artificial Opening Endoscopic, Diagnostic (ICD-10-PCS; 2024-01-14)
PROC: 0BDF8ZX Extraction of Right Lower Lung Lobe, Via Natural or Artificial Opening Endoscopic, Diagnostic (ICD-10-PCS; 2024-01-14)
PROC: 0B21XFZ Change Tracheostomy Device in Trachea, External Approach (ICD-10-PCS; 2024-01-27)
DX: L03.116 Cellulitis of left lower limb (principal); J96.01 Acute respiratory failure with hypoxia; I69.354 Hemiplegia and hemiparesis following cerebral infarction affecting left non-dominant side; I47.10 Supraventricular tachycardia, unspecified; D62 Acute posthemorrhagic anemia; N17.9 Acute kidney failure, unspecified; Z68.42 Body mass index [BMI] 45.0-49.9, adult; K92.2 Gastrointestinal hemorrhage, unspecified; J95.01 Hemorrhage from tracheostomy stoma; I13.0 Hypertensive heart and chronic kidney disease with heart failure and stage 1 through stage 4 chronic kidney disease, or unspecified chronic kidney disease; L97.828 Non-pressure chronic ulcer of other part of left lower leg with other specified severity; L97.818 Non-pressure chronic ulcer of other part of right lower leg with other specified severity; L03.115 Cellulitis of right lower limb; J04.10 Acute tracheitis without obstruction; I48.91 Unspecified atrial fibrillation; J45.909 Unspecified asthma, uncomplicated; E78.5 Hyperlipidemia, unspecified; I25.10 Atherosclerotic heart disease of native coronary artery without angina pectoris; E66.01 Morbid (severe) obesity due to excess calories; Z88.0 Allergy status to penicillin; G47.33 Obstructive sleep apnea (adult) (pediatric); K25.9 Gastric ulcer, unspecified as acute or chronic, without hemorrhage or perforation; E11.22 Type 2 diabetes mellitus with diabetic chronic kidney disease; N18.30 Chronic kidney disease, stage 3 unspecified; I50.9 Heart failure, unspecified; E11.622 Type 2 diabetes mellitus with other skin ulcer; B96.1 Klebsiella pneumoniae [K. pneumoniae] as the cause of diseases classified elsewhere; B95.2 Enterococcus as the cause of diseases classified elsewhere
CPT/HCPCS: 0241U-QW; 36415; 36430; 36600; 49440; 70450-TC; 71045-TC-FY; 74018-TC-FY; 74176-TC; 76775-TC; 76856-TC; 80048; 80053; 81003; 82043; 82272; 82308; 82550; 82570; 82607; 82728; 82746; 82803; 82962; 83540; 83550; 83605; 83690; 83735; 84100; 84156; 84300; 84436; 84439; 84443; 84466; 85025; 85027; 85045; 85384; 85610; 85730; 86850; 86900; 86901; 86922; 87040; 87070; 87086; 87186; 87205; 87338; 87635; 93005; 93010; 93925-TC; 93971-TC; 94002; 94640; 94660; 94760; 97162-GP; 99285-25; G0480; J0131; J1100; J2597; J2997; P9034; P9058

== ENCOUNTER 2024-03-01 18:10 | Emergency (ER) | payer OTHER ==
[2024-03-01 18:48] VITALS: BMI 45.7
[2024-03-02] MEDS ORDERED: DEXTROSE 50%-WATER 25 GM/50 ML DISP.SYRIN ONE (03:11)
[2024-03-02 03:38] VITALS: BP 106/66; PULSE 66; RESP 17; TEMP 97.8
== END 2024-03-02 09:10 | disposition home or self-care (01) ==
LOC: JER 18:10
DX: M25.552 Pain in left hip (principal)
CPT/HCPCS: 73502-TC-LT-FY; 82962; 93970-TC; 99285-25

== ENCOUNTER 2024-03-23 13:15 | Inpatient (IN) | payer OTHER ==
[2024-03-23 15:41] LABS: HEMATOCRIT 24.5 % (32.4-45.2); HEMOGLOBIN 7.3 GM/dL (10.7-15.3); MCHC 29.9 g/dl (32.0-36.0); MEAN CELL VOLUME 87.1 fl (80-96); MEAN PLT VOLUME 9.9 fl (7.5-11.1); PLATELET COUNT 130 10^3/uL (134-434); RBC 2.81 M/mm3 (3.60-5.2); RDW 19.7 % (11.6-15.6); WHITE BLOOD COUNT 8.6 K/mm3 (4.0-10.0)
[2024-03-23 15:49] LABS: INR 1.12 (0.83-1.09); PROTHROMBIN TIME (PATIENT) 12.8 SEC (9.7-13.0)
[2024-03-23 15:52] LABS: ACTIVATED PTT 21.3 SECONDS (25.2-36.5)
[2024-03-23 16:03] LABS: CHLORIDE 95 mmol/L (98-107); POTASSIUM 4.5 mmol/L (3.5-5.1); SODIUM 140 mmol/L (136-145)
[2024-03-23 16:05] LABS: ALBUMIN 1.9 g/dl (3.4-5.0); ANION GAP 8 mmol/L (4-13); CALCIUM 8.6 mg/dL (8.5-10.1); CO2 37 mmol/L (21-32)
[2024-03-23 16:06] LABS: GLUCOSE,RANDOM 112 mg/dL (74-106); MAGNESIUM 3.1 mg/dL (1.8-2.4)
[2024-03-23 16:08] LABS: SGPT/ALT 37 U/L (13-61)
[2024-03-23 16:09] LABS: ANISOCYTOSIS 2+; BLOOD UREA NITROGEN 109.4 mg/dL (7-18); CREATININE 2.1 mg/dL (0.55-1.3); MACROCYTOSIS 0; OVALOCYTE 1+; SGOT/AST 59 U/L (15-37); TARGET CELLS 1+; TEAR DROP CELLS 1+
[2024-03-23 16:10] LABS: BILIRUBIN,TOTAL 0.5 mg/dL (0.2-1); TOT PROT 7.3 g/dl (6.4-8.2)
[2024-03-23 16:11] LABS: ALK PHOS 142 U/L (45-117)
[2024-03-23 17:13] LABS: EPI CELLS 89.1 /uL (0-25.1); HYALINE CASTS 1.37 /uL (0-3.1); URINE APPEARANCE CLEAR; URINE BACTERIA 118.1 /uL (0-1359); URINE BILIRUBIN NEGATIVE (NEGATIVE); URINE COLOR YELLOW; URINE GLUCOSE (UA) NEGATIVE (NEGATIVE); URINE KETONE NEGATIVE (NEGATIVE); URINE LEUK ESTERASE 1+ (NEGATIVE); URINE NITRITE NEGATIVE (NEGATIVE); URINE PROTEIN 2+ (NEGATIVE); URINE UROBILINOGEN 0.2 mg/dL (0.2-1.0)
[2024-03-23] MEDS ORDERED: CEFTRIAXONE 1 G/50 ML PREMIX 50 ML IVPB ONE (19:10)
[2024-03-23] MEDS: CEFTRIAXONE 1,000 MG in DEXTROSE 5%-WATER - 50 ML IVPB ONE (19:39)
[2024-03-24 01:44] LABS: EPI CELLS 21 /uL (0-25.1); HYALINE CASTS 1 /uL (0-3.1); PH,URINE 6.5 (5.0-8.0); URINE APPEARANCE CLEAR; URINE BACTERIA 36 /uL (0-1359); URINE BILIRUBIN NEGATIVE (NEGATIVE); URINE COLOR YELLOW; URINE GLUCOSE (UA) NEGATIVE (NEGATIVE); URINE KETONE NEGATIVE (NEGATIVE); URINE LEUK ESTERASE 1+ (NEGATIVE); URINE NITRITE NEGATIVE (NEGATIVE); URINE PROTEIN 2+ (NEGATIVE); URINE RBC 1163 /uL (0-23.9); URINE UROBILINOGEN 0.2 mg/dL (0.2-1.0); URINE WBC 42 /uL (0-25.8)
[2024-03-24] MEDS ORDERED: HEPARIN NA (PORCINE) 5,000 UNITS/ML 1ML VIAL SQ SCH (06:00)
[2024-03-24] MEDS: HEPARIN NA (PORCINE) 5,000 UNITS/ML 1ML VIAL SQ SCH ×2 (06:01→21:56)
[2024-03-24] MEDS: INSULIN ASPART SLIDING SCALE (NOVOLOG) 1 VIAL SQ SCH ×3 (09:08→21:58)
[2024-03-24] MEDS: SCOPOLAMINE HYDROBROMIDE 1 PATCH PATCH.TD72 TD SCH (09:38)
[2024-03-24] MEDS: PANTOPRAZOLE 40 MG TABLET PO SCH (09:38)
[2024-03-24] MEDS: AMINO ACIDS/PROTEIN HYDROLYS 30 ML LIQUID.PKT PO SCH (09:38)
[2024-03-24] MEDS: METOPROLOL TARTRATE 50 MG TABLET (FP) GT SCH ×2 (09:38→21:58)
[2024-03-24] MEDS: FAMOTIDINE 20 MG/2.5 ML ORAL LIQUID PEG SCH (09:39)
[2024-03-24] MEDS: FUROSEMIDE 40 MG/5 ML UNIT-DOSE CUP GT SCH (09:39)
[2024-03-24] MEDS ORDERED: FUROSEMIDE 40 MG/4 ML INJECTABLE VIAL IVPUSH ONE (11:00)
[2024-03-24] MEDS: ERTAPENEM SODIUM 1 GM in SODIUM CHLORIDE 50 ML IVPB SCH (11:21)
[2024-03-24] MEDS: FUROSEMIDE 40 MG/4 ML INJECTABLE VIAL IVPUSH ONE (11:21)
[2024-03-24 12:48] LABS: HEMATOCRIT 27.8 % (32.4-45.2); HEMOGLOBIN 8.7 GM/dL (10.7-15.3); MCHC 31.2 g/dl (32.0-36.0); MEAN CELL VOLUME 86.4 fl (80-96); MEAN PLT VOLUME 9.5 fl (7.5-11.1); PLATELET COUNT 123 10^3/uL (134-434); RBC 3.22 M/mm3 (3.60-5.2); WHITE BLOOD COUNT 8.1 K/mm3 (4.0-10.0)
[2024-03-24] MEDS ORDERED: LACTULOSE 20 GM/30 ML UDC (FOR ORAL USE ONLY) GT PRN ×2 (12:58→19:52)
[2024-03-24] MEDS ORDERED: dilTIAZem HCL 50 MG/10 ML - 10 ML VIAL IVPUSH ONE (13:10)
[2024-03-24 13:14] LABS: CHLORIDE 97 mmol/L (98-107); SODIUM 143 mmol/L (136-145)
[2024-03-24 13:17] LABS: ALBUMIN 1.8 g/dl (3.4-5.0); CALCIUM 9.1 mg/dL (8.5-10.1)
[2024-03-24 13:19] LABS: ANION GAP 9 mmol/L (4-13); CO2 38 mmol/L (21-32); GLUCOSE,RANDOM 90 mg/dL (74-106)
[2024-03-24 13:20] LABS: CREATININE 2.1 mg/dL (0.55-1.3); SGOT/AST 73 U/L (15-37); SGPT/ALT 43 U/L (13-61)
[2024-03-24 13:21] LABS: PHOSPHOROUS 4.8 mg/dL (2.5-4.9)
[2024-03-24 13:22] LABS: BILIRUBIN,TOTAL 0.9 mg/dL (0.2-1); TOT PROT 6.8 g/dl (6.4-8.2)
[2024-03-24 13:23] LABS: ALK PHOS 137 U/L (45-117)
[2024-03-24 13:42] LABS: BLOOD UREA NITROGEN 107.4 mg/dL (7-18)
[2024-03-24] MEDS: METOPROLOL TARTRATE 5 MG/5 ML VIAL IVPB ONE (14:07)
[2024-03-24] MEDS: ATORVASTATIN CA 40 MG TABLET (FP) GT SCH (21:57)
[2024-03-24] MEDS ORDERED: ATORVASTATIN CA 40 MG TABLET (FP) GT SCH (22:00)
[2024-03-24] MEDS ORDERED: PANTOPRAZOLE 40 MG TABLET PO SCH (22:00)
[2024-03-25 08:04] LABS: CHLORIDE 97 mmol/L (98-107); POTASSIUM 3.5 mmol/L (3.5-5.1); SODIUM 142 mmol/L (136-145)
[2024-03-25 08:10] LABS: ALBUMIN 1.9 g/dl (3.4-5.0); ANION GAP 6 mmol/L (4-13); CALCIUM 9.1 mg/dL (8.5-10.1); CO2 38 mmol/L (21-32); SGOT/AST 61 U/L (15-37); SGPT/ALT 43 U/L (13-61)
[2024-03-25 08:11] LABS: GLUCOSE,RANDOM 111 mg/dL (74-106)
[2024-03-25 08:12] LABS: BILIRUBIN,TOTAL 0.8 mg/dL (0.2-1); BLOOD UREA NITROGEN 107.4 mg/dL (7-18); TOT PROT 6.9 g/dl (6.4-8.2)
[2024-03-25 08:13] LABS: ALK PHOS 149 U/L (45-117); CREATININE 2.1 mg/dL (0.55-1.3)
[2024-03-25 08:20] LABS: N-TERMINAL BNP 14349.5 pg/ml (5-125)
[2024-03-25 08:22] LABS: BASO % 0.2 % (0-2.0); EOS % 7.3 % (0-4.5); HEMATOCRIT 28.2 % (32.4-45.2); HEMOGLOBIN 8.7 GM/dL (10.7-15.3); LYMPH % 10.8 % (8-40); MCH 26.9 pg (25.7-33.7); MCHC 30.9 g/dl (32.0-36.0); MEAN CELL VOLUME 86.8 fl (80-96); MEAN PLT VOLUME 9.8 fl (7.5-11.1); MONO % 10.4 % (3.8-10.2); NEUT % 71.3 % (42.8-82.8); PLATELET COUNT 124 10^3/uL (134-434); RBC 3.25 M/mm3 (3.60-5.2); RDW 18.4 % (11.6-15.6); WHITE BLOOD COUNT 7.9 K/mm3 (4.0-10.0)
[2024-03-25] MEDS: AMINO ACIDS/PROTEIN HYDROLYS 30 ML LIQUID.PKT PO SCH (08:43)
[2024-03-25] MEDS: FAMOTIDINE 20 MG/2.5 ML ORAL LIQUID PEG SCH (09:35)
[2024-03-25] MEDS ORDERED: METOPROLOL TARTRATE 5 MG/5 ML VIAL IVPUSH PRN (12:02)
[2024-03-25 12:59] LABS: MAGNESIUM 2.8 mg/dL (1.8-2.4)
[2024-03-25 13:03] LABS: PHOSPHOROUS 5.2 mg/dL (2.5-4.9)
[2024-03-25] MEDS: FUROSEMIDE 40 MG/4 ML INJECTABLE VIAL IVPUSH SCH (13:15)
[2024-03-25] MEDS ORDERED: ACETAMINOPHEN 325 MG TABLET (FP) PO PRN (13:21)
[2024-03-25] MEDS: ACETAMINOPHEN 325 MG TABLET (FP) PO PRN (18:50)
[2024-03-25] MEDS: MINERAL OIL/PET HY-PHL TOPICAL OINTMENT 454 GM JAR TP SCH (19:32)
[2024-03-25] MEDS: CLOTRIMAZOLE 1% CREAM TP SCH (21:12)
[2024-03-26 08:18] LABS: BASO % 0.2 % (0-2.0); HEMATOCRIT 29.8 % (32.4-45.2); LYMPH % 11.6 % (8-40); MCH 26.8 pg (25.7-33.7); MCHC 30.4 g/dl (32.0-36.0); MEAN CELL VOLUME 88.1 fl (80-96); MEAN PLT VOLUME 9.7 fl (7.5-11.1); MONO % 11.8 % (3.8-10.2); NEUT % 68.4 % (42.8-82.8); PLATELET COUNT 125 10^3/uL (134-434); RBC 3.38 M/mm3 (3.60-5.2); RDW 18.9 % (11.6-15.6); WHITE BLOOD COUNT 7.1 K/mm3 (4.0-10.0)
[2024-03-26 08:49] LABS: POTASSIUM 3.1 mmol/L (3.5-5.1)
[2024-03-26 08:50] LABS: POTASSIUM 3.1 mmol/L (3.5-5.1)
[2024-03-26 08:54] LABS: CALCIUM 9.2 mg/dL (8.5-10.1); MAGNESIUM 2.8 mg/dL (1.8-2.4)
[2024-03-26 08:55] LABS: BLOOD UREA NITROGEN 94.4 mg/dL (7-18)
[2024-03-26 08:57] LABS: CREATININE 2.1 mg/dL (0.55-1.3); PHOSPHOROUS 5.3 mg/dL (2.5-4.9)
[2024-03-26 08:59] LABS: TOT PROT 6.9 g/dl (6.4-8.2)
[2024-03-26 09:02] LABS: BILIRUBIN,TOTAL 0.7 mg/dL (0.2-1)
[2024-03-26] MEDS: POTASSIUM CHLORIDE ORAL LIQUID 20 MEQ/15 ML GT ONE (11:23)
[2024-03-26] MEDS: KCL 10 MEQ IVPB 10 MEQ/100 ML INFUS.BAG IVPB SCH (14:00)
[2024-03-27 08:56] LABS: BASO % 0.2 % (0-2.0); HEMATOCRIT 29.3 % (32.4-45.2); LYMPH % 11.9 % (8-40); MCH 26.8 pg (25.7-33.7); MCHC 30.9 g/dl (32.0-36.0); MEAN PLT VOLUME 9.1 fl (7.5-11.1); MONO % 11.2 % (3.8-10.2); NEUT % 68.7 % (42.8-82.8); PLATELET COUNT 123 10^3/uL (134-434); RBC 3.37 M/mm3 (3.60-5.2); RDW 18.8 % (11.6-15.6); WHITE BLOOD COUNT 7.1 K/mm3 (4.0-10.0)
[2024-03-27 09:10] LABS: POTASSIUM 3.6 mmol/L (3.5-5.1)
[2024-03-27 09:14] LABS: CALCIUM 9.5 mg/dL (8.5-10.1)
[2024-03-27 09:15] LABS: ALBUMIN 2.1 g/dl (3.4-5.0); BLOOD UREA NITROGEN 99.8 mg/dL (7-18)
[2024-03-27 09:17] LABS: BILIRUBIN,TOTAL 0.8 mg/dL (0.2-1)
[2024-03-27 09:19] LABS: TOT PROT 7.2 g/dl (6.4-8.2)
[2024-03-27] MEDS: SCOPOLAMINE HYDROBROMIDE 1 PATCH PATCH.TD72 TD SCH (09:49)
[2024-03-28 07:08] LABS: BASO % 0.4 % (0-2.0); EOS % 8.3 % (0-4.5); HEMATOCRIT 29.5 % (32.4-45.2); LYMPH % 14.3 % (8-40); MCH 26.9 pg (25.7-33.7); MCHC 30.6 g/dl (32.0-36.0); MEAN CELL VOLUME 87.8 fl (80-96); MEAN PLT VOLUME 9.4 fl (7.5-11.1); MONO % 11.6 % (3.8-10.2); NEUT % 65.4 % (42.8-82.8); PLATELET COUNT 112 10^3/uL (134-434); RBC 3.36 M/mm3 (3.60-5.2); RDW 18.8 % (11.6-15.6); WHITE BLOOD COUNT 7.5 K/mm3 (4.0-10.0)
[2024-03-28 07:17] LABS: POTASSIUM 3.4 mmol/L (3.5-5.1)
[2024-03-28 07:19] LABS: CALCIUM 9.3 mg/dL (8.5-10.1)
[2024-03-28 07:20] LABS: BLOOD UREA NITROGEN 86.2 mg/dL (7-18)
[2024-03-28 07:23] LABS: CREATININE 1.9 mg/dL (0.55-1.3)
[2024-03-28 07:25] LABS: BILIRUBIN,TOTAL 0.9 mg/dL (0.2-1); TOT PROT 6.8 g/dl (6.4-8.2)
[2024-03-28 14:59] LABS: MAGNESIUM 2.4 mg/dL (1.8-2.4)
[2024-03-28] MEDS: POTASSIUM CHLORIDE ORAL LIQUID 20 MEQ/15 ML PO ONE (15:47)
[2024-03-28 16:18] VITALS: BMI 50.8
[2024-03-29 06:43] LABS: BASO % 0.4 % (0-2.0); EOS % 8.3 % (0-4.5); HEMATOCRIT 30.3 % (32.4-45.2); LYMPH % 17.1 % (8-40); MCH 26.1 pg (25.7-33.7); MCHC 29.7 g/dl (32.0-36.0); MEAN CELL VOLUME 88.1 fl (80-96); MEAN PLT VOLUME 10.2 fl (7.5-11.1); MONO % 10.5 % (3.8-10.2); NEUT % 63.7 % (42.8-82.8); PLATELET COUNT 118 10^3/uL (134-434); RBC 3.44 M/mm3 (3.60-5.2); RDW 19.3 % (11.6-15.6)
[2024-03-29 07:14] LABS: POTASSIUM 3.5 mmol/L (3.5-5.1)
[2024-03-29 07:23] LABS: CALCIUM 9.4 mg/dL (8.5-10.1)
[2024-03-29 07:24] LABS: ALBUMIN 2.1 g/dl (3.4-5.0); BLOOD UREA NITROGEN 90.2 mg/dL (7-18)
[2024-03-29 07:29] LABS: TOT PROT 7.2 g/dl (6.4-8.2)
[2024-03-29 08:23] LABS: MAGNESIUM 2.5 mg/dL (1.8-2.4)
[2024-03-29] MEDS: FUROSEMIDE 40 MG/4 ML INJECTABLE VIAL IVPUSH SCH (09:28)
[2024-03-29 10:32] VITALS: TEMP 96.5
[2024-03-29] MEDS: FUROSEMIDE 40 MG/5 ML UNIT-DOSE CUP PEG SCH (11:12)
[2024-03-29 13:26] VITALS: BP 151/113
[2024-03-29 15:03] VITALS: PULSE 94; RESP 12
== END 2024-03-29 15:15 | DRG 291 ==
LOC: JER 13:15 → JERBED 16:43 → J5S 21:57 → J2W 03-24 19:04
PROVIDERS: ADMIT Internal Medicine; ATTEND Internal Medicine
PROC: 30233N1 Transfusion of Nonautologous Red Blood Cells into Peripheral Vein, Percutaneous Approach (ICD-10-PCS; principal; 2024-03-23)
PROC: 5A1955Z Respiratory Ventilation, Greater than 96 Consecutive Hours (ICD-10-PCS; 2024-03-23)
DX: I13.0 Hypertensive heart and chronic kidney disease with heart failure and stage 1 through stage 4 chronic kidney disease, or unspecified chronic kidney disease (principal); I50.23 Acute on chronic systolic (congestive) heart failure; L89.323 Pressure ulcer of left buttock, stage 3; J96.20 Acute and chronic respiratory failure, unspecified whether with hypoxia or hypercapnia; N17.9 Acute kidney failure, unspecified; I69.354 Hemiplegia and hemiparesis following cerebral infarction affecting left non-dominant side; N18.4 Chronic kidney disease, stage 4 (severe); I48.91 Unspecified atrial fibrillation; D63.1 Anemia in chronic kidney disease; E78.5 Hyperlipidemia, unspecified; J45.909 Unspecified asthma, uncomplicated; Z93.0 Tracheostomy status; E11.22 Type 2 diabetes mellitus with diabetic chronic kidney disease; G47.33 Obstructive sleep apnea (adult) (pediatric); Z93.1 Gastrostomy status; E87.6 Hypokalemia
CPT/HCPCS: 0241U-QW; 36415; 36430; 71045-TC-FY; 76775-TC; 80053; 80061; 81003; 82140; 82272; 82728; 82962; 83036; 83540; 83550; 83605; 83735; 83880; 83970; 84100; 84132; 84439; 84443; 84466; 84484; 85025; 85027; 85610; 85730; 86850; 86900; 86901; 86922; 87086; 87186; 87481; 93005; 93010; 93306-TC; 94002; 99285-25; J1644; P9058

== ENCOUNTER 2024-04-18 15:21 | Inpatient (IN) | payer OTHER ==
[2024-04-18 19:30] LABS: BASO % 0.2 % (0-2.0); HEMATOCRIT 27.1 % (32.4-45.2); HEMOGLOBIN 8.3 GM/dL (10.7-15.3); LYMPH % 7.7 % (8-40); MCH 25.1 pg (25.7-33.7); MCHC 30.4 g/dl (32.0-36.0); MEAN CELL VOLUME 82.6 fl (80-96); MEAN PLT VOLUME 9.7 fl (7.5-11.1); MONO % 9.4 % (3.8-10.2); NEUT % 78.7 % (42.8-82.8); PLATELET COUNT 195 10^3/uL (134-434); RBC 3.29 M/mm3 (3.60-5.2); RDW 20.7 % (11.6-15.6); WHITE BLOOD COUNT 10.3 K/mm3 (4.0-10.0)
[2024-04-18 19:31] LABS: ADD RBC MORPHOLOGY YES
[2024-04-18 19:42] LABS: INR 1.25 (0.83-1.09); PROTHROMBIN TIME (PATIENT) 14.3 SEC (9.7-13.0)
[2024-04-18 19:45] LABS: ACTIVATED PTT 22.1 SECONDS (25.2-36.5)
[2024-04-18 19:57] LABS: CHLORIDE 88 mmol/L (98-107); POTASSIUM 5.5 mmol/L (3.5-5.1); SODIUM 132 mmol/L (136-145)
[2024-04-18 19:59] LABS: CALCIUM 8.9 mg/dL (8.5-10.1)
[2024-04-18 20:00] LABS: ALBUMIN 1.8 g/dl (3.4-5.0); ANION GAP 9 mmol/L (4-13); CO2 35 mmol/L (21-32); GLUCOSE,RANDOM 120 mg/dL (74-106); MAGNESIUM 3.3 mg/dL (1.8-2.4)
[2024-04-18 20:00] LABS: VENOUS BASE EXCESS 10.9 mmol/L (-2-2); VENOUS PCO2 50.6 mmHg (38-52); VENOUS PH 7.468 (7.310-7.410)
[2024-04-18 20:03] LABS: CREATININE 3.5 mg/dL (0.55-1.3); PHOSPHOROUS 6.5 mg/dL (2.5-4.9); SGOT/AST 66 U/L (15-37); SGPT/ALT 26 U/L (13-61)
[2024-04-18 20:04] LABS: TOT PROT 7.7 g/dl (6.4-8.2)
[2024-04-18 20:05] LABS: ALK PHOS 200 U/L (45-117)
[2024-04-18 20:08] LABS: ANISOCYTOSIS 2+; MACROCYTOSIS 2+; TARGET CELLS 1+
[2024-04-18 20:29] LABS: BLOOD UREA NITROGEN 145.4 mg/dL (7-18)
[2024-04-18 21:06] LABS: URINE APPEARANCE CLEAR; URINE BILIRUBIN NEGATIVE (NEGATIVE); URINE COLOR YELLOW; URINE GLUCOSE (UA) NEGATIVE (NEGATIVE); URINE KETONE NEGATIVE (NEGATIVE); URINE LEUK ESTERASE 1+ (NEGATIVE); URINE NITRITE NEGATIVE (NEGATIVE); URINE PROTEIN 2+ (NEGATIVE)
[2024-04-18 21:10] LABS: EPI CELLS 10.6 /uL (0-25.1); HYALINE CASTS 0.68 /uL (0-3.1); URINE BACTERIA 10166.5 /uL (0-1359); URINE RBC 74.6 /uL (0-23.9); URINE WBC 58.7 /uL (0-25.8)
[2024-04-18] MEDS: WATER IV ONE (22:23)
[2024-04-18] MEDS: ACETAZOLAMIDE IV ONE (22:23)
[2024-04-18] MEDS: DEXTROSE 5% IV ONE (22:23)
[2024-04-19] MEDS: SODIUM CHLORIDE 500 ML IV STA (05:11)
[2024-04-19] MEDS: METOPROLOL TARTRATE 50 MG TABLET (FP) GT ONE ×2 (05:12→05:13)
[2024-04-19] MEDS: FUROSEMIDE 40 MG/4 ML INJECTABLE VIAL IVPUSH SCH ×2 (06:41→15:13)
[2024-04-19] MEDS ORDERED: HEPARIN NA (PORCINE) 5,000 UNITS/ML 1ML VIAL ONE ×3 (07:04→23:35)
[2024-04-19] MEDS: HEPARIN NA (PORCINE) 5,000 UNITS/ML 1ML VIAL SQ SCH (07:16)
[2024-04-19] MEDS ORDERED: DEXTROSE 50%-WATER 25 GM/50 ML DISP.SYRIN ONE (08:05)
[2024-04-19 08:22] LABS: BASO % 0.3 % (0-2.0); EOS % 3.6 % (0-4.5); HEMATOCRIT 24.9 % (32.4-45.2); HEMOGLOBIN 7.6 GM/dL (10.7-15.3); LYMPH % 8.5 % (8-40); MCH 25.1 pg (25.7-33.7); MCHC 30.4 g/dl (32.0-36.0); MEAN CELL VOLUME 82.7 fl (80-96); MEAN PLT VOLUME 9.8 fl (7.5-11.1); MONO % 8.3 % (3.8-10.2); NEUT % 79.3 % (42.8-82.8); PLATELET COUNT 223 10^3/uL (134-434); RBC 3.02 M/mm3 (3.60-5.2); RDW 20.3 % (11.6-15.6)
[2024-04-19] MEDS: INSULIN ASPART SLIDING SCALE (NOVOLOG) 1 VIAL SQ SCH (08:24)
[2024-04-19] MEDS: DEXTROSE 50%-WATER 25 GM/50 ML DISP.SYRIN IVPUSH ONE (08:25)
[2024-04-19 08:41] LABS: CHLORIDE 87 mmol/L (98-107); POTASSIUM 5.7 mmol/L (3.5-5.1); SODIUM 132 mmol/L (136-145)
[2024-04-19 08:42] LABS: CALCIUM 8.8 mg/dL (8.5-10.1)
[2024-04-19 08:43] LABS: ALBUMIN 1.7 g/dl (3.4-5.0); ANION GAP 7 mmol/L (4-13); CO2 37 mmol/L (21-32); GLUCOSE,RANDOM 294 mg/dL (74-106); MAGNESIUM 3.1 mg/dL (1.8-2.4)
[2024-04-19 08:45] LABS: BLOOD UREA NITROGEN 149.5 mg/dL (7-18); SGPT/ALT 24 U/L (13-61)
[2024-04-19 08:46] LABS: CREATININE 3.7 mg/dL (0.55-1.3); PHOSPHOROUS 6.6 mg/dL (2.5-4.9); SGOT/AST 72 U/L (15-37)
[2024-04-19 08:48] LABS: TOT PROT 7.1 g/dl (6.4-8.2)
[2024-04-19 08:49] LABS: ALK PHOS 175 U/L (45-117)
[2024-04-19] MEDS ORDERED: FUROSEMIDE 40 MG/4 ML INJECTABLE VIAL IVPUSH SCH (10:00)
[2024-04-19] MEDS ORDERED: METOPROLOL TARTRATE 50 MG TABLET (FP) ONE ×2 (11:30→23:35)
[2024-04-19] MEDS ORDERED: SCOPOLAMINE HYDROBROMIDE 1 PATCH PATCH.TD72 ONE (11:30)
[2024-04-19] MEDS ORDERED: FAMOTIDINE 20 MG TABLET ONE ×2 (11:30→23:35)
[2024-04-19] MEDS: FAMOTIDINE 20 MG/2.5 ML ORAL LIQUID GT SCH (11:53)
[2024-04-19] MEDS: FERROUS SO4 300 MG/5 ML ORAL SOLN UNIT DOSE CUPS GT SCH (11:53)
[2024-04-19] MEDS: METOPROLOL TARTRATE 50 MG TABLET (FP) GT SCH (11:53)
[2024-04-19] MEDS: ERTAPENEM SODIUM 1 GM in SODIUM CHLORIDE 50 ML IVPB SCH (11:53)
[2024-04-19] MEDS: SCOPOLAMINE HYDROBROMIDE 1 PATCH PATCH.TD72 TD SCH (11:53)
[2024-04-19] MEDS: ZINC OXIDE 20% TOPICAL OINTMENT 30 GM TUBE TP SCH (11:56)
[2024-04-19] MEDS ORDERED: FUROSEMIDE 40 MG/4 ML INJECTABLE VIAL ONE (15:00)
[2024-04-19] MEDS ORDERED: SODIUM ZIRCONIUM CYCLOSILICATE (LOKELMA) 10 GM PACKET ONE (15:26)
[2024-04-19] MEDS: SODIUM ZIRCONIUM CYCLOSILICATE (LOKELMA) 5 GM PACKET GT ONE (15:41)
[2024-04-19] MEDS ORDERED: ACETAMINOPHEN INJECTION 100 ML ONE (19:55)
[2024-04-19] MEDS: ACETAMINOPHEN 1000 MG/100 ML BAG IVPB ONE (20:00)
[2024-04-19] MEDS: ATORVASTATIN CA 40 MG TABLET (FP) GT SCH (23:30)
[2024-04-19] MEDS ORDERED: ATORVASTATIN CA 40 MG TABLET (FP) ONE (23:36)
[2024-04-20 07:16] LABS: CHLORIDE 88 mmol/L (98-107); POTASSIUM 4.9 mmol/L (3.5-5.1); SODIUM 133 mmol/L (136-145)
[2024-04-20 07:18] LABS: ANION GAP 10 mmol/L (4-13); CO2 36 mmol/L (21-32)
[2024-04-20 07:19] LABS: GLUCOSE,RANDOM 100 mg/dL (74-106)
[2024-04-20 07:21] LABS: BASO % 0.5 % (0-2.0); CREATININE 3.8 mg/dL (0.55-1.3); HEMOGLOBIN 7.4 GM/dL (10.7-15.3); LYMPH % 10.1 % (8-40); MCH 25.2 pg (25.7-33.7); MCHC 30.8 g/dl (32.0-36.0); MEAN CELL VOLUME 81.7 fl (80-96); MEAN PLT VOLUME 9.8 fl (7.5-11.1); MONO % 9.4 % (3.8-10.2); PLATELET COUNT 200 10^3/uL (134-434); RBC 2.93 M/mm3 (3.60-5.2); RDW 20.8 % (11.6-15.6); WHITE BLOOD COUNT 9.6 K/mm3 (4.0-10.0)
[2024-04-20 08:34] LABS: BLOOD UREA NITROGEN 150.9 mg/dL (7-18)
[2024-04-20 13:05] VITALS: BMI 51.7
[2024-04-20] MEDS: ACETAMINOPHEN 1000 MG/100 ML BAG IVPB PRN (14:07)
[2024-04-20] MEDS: ALBUMIN HUMAN 25% 100 ML VIAL IV SCH (14:08)
[2024-04-20] MEDS: HEPARIN NA (PORCINE) 5,000 UNITS/ML 1ML VIAL SQ SCH (22:01)
[2024-04-21 07:45] LABS: BASO % 0.2 % (0-2.0); EOS % 7.9 % (0-4.5); HEMATOCRIT 25.4 % (32.4-45.2); HEMOGLOBIN 7.8 GM/dL (10.7-15.3); LYMPH % 12.9 % (8-40); MCH 25.3 pg (25.7-33.7); MCHC 30.6 g/dl (32.0-36.0); MEAN CELL VOLUME 82.8 fl (80-96); MEAN PLT VOLUME 9.5 fl (7.5-11.1); MONO % 10.3 % (3.8-10.2); NEUT % 68.7 % (42.8-82.8); PLATELET COUNT 194 10^3/uL (134-434); RBC 3.07 M/mm3 (3.60-5.2); RDW 20.9 % (11.6-15.6); WHITE BLOOD COUNT 7.9 K/mm3 (4.0-10.0)
[2024-04-21 08:02] LABS: CHLORIDE 87 mmol/L (98-107); POTASSIUM 4.5 mmol/L (3.5-5.1); SODIUM 134 mmol/L (136-145)
[2024-04-21 08:04] LABS: ANION GAP 11 mmol/L (4-13); CALCIUM 9.2 mg/dL (8.5-10.1); CO2 36 mmol/L (21-32)
[2024-04-21 08:05] LABS: GLUCOSE,RANDOM 133 mg/dL (74-106)
[2024-04-21 08:07] LABS: SGOT/AST 27 U/L (15-37); SGPT/ALT 18 U/L (13-61)
[2024-04-21 08:08] LABS: CREATININE 4.1 mg/dL (0.55-1.3)
[2024-04-21 08:09] LABS: BILIRUBIN,TOTAL 1.1 mg/dL (0.2-1); TOT PROT 7.1 g/dl (6.4-8.2)
[2024-04-21 08:10] LABS: ALBUMIN 2.5 g/dl (3.4-5.0); ALK PHOS 149 U/L (45-117); BLOOD UREA NITROGEN 148.6 mg/dL (7-18)
[2024-04-21] MEDS: MAGNESIUM HYDROX 2400MG/30ML ORAL SUSPENSION 30 ML CUP GT SCH (09:45)
[2024-04-21] MEDS: FUROSEMIDE 40 MG/4 ML INJECTABLE VIAL IVPUSH SCH (10:30)
[2024-04-21] MEDS: ALBUMIN HUMAN 25% 12.5 GM/50 ML VIAL IV SCH ×2 (11:34→12:09)
[2024-04-22 07:41] LABS: BASO % 0.3 % (0-2.0); EOS % 8.5 % (0-4.5); HEMATOCRIT 25.5 % (32.4-45.2); HEMOGLOBIN 7.9 GM/dL (10.7-15.3); LYMPH % 14.3 % (8-40); MCH 25.3 pg (25.7-33.7); MEAN CELL VOLUME 81.6 fl (80-96); MEAN PLT VOLUME 9.4 fl (7.5-11.1); MONO % 12.2 % (3.8-10.2); NEUT % 64.7 % (42.8-82.8); PLATELET COUNT 169 10^3/uL (134-434); RBC 3.13 M/mm3 (3.60-5.2); RDW 21.4 % (11.6-15.6); WHITE BLOOD COUNT 7.1 K/mm3 (4.0-10.0)
[2024-04-22 08:00] LABS: CHLORIDE 88 mmol/L (98-107); POTASSIUM 4.1 mmol/L (3.5-5.1); SODIUM 135 mmol/L (136-145)
[2024-04-22 08:03] LABS: ALBUMIN 2.7 g/dl (3.4-5.0); ANION GAP 11 mmol/L (4-13); CO2 36 mmol/L (21-32); GLUCOSE,RANDOM 110 mg/dL (74-106)
[2024-04-22 08:04] LABS: BLOOD UREA NITROGEN > 150.0 mg/dL (7-18)
[2024-04-22 08:05] LABS: CALCIUM 9.2 mg/dL (8.5-10.1); CREATININE 4.2 mg/dL (0.55-1.3); MAGNESIUM 3.2 mg/dL (1.8-2.4)
[2024-04-22 08:06] LABS: SGOT/AST 30 U/L (15-37); SGPT/ALT 16 U/L (13-61)
[2024-04-22 08:07] LABS: BILIRUBIN,TOTAL 1.3 mg/dL (0.2-1); TOT PROT 7.2 g/dl (6.4-8.2)
[2024-04-22 08:08] LABS: ALK PHOS 135 U/L (45-117)
[2024-04-22 09:22] LABS: ANISOCYTOSIS 1+; MACROCYTOSIS 0
[2024-04-22] MEDS: ERTAPENEM SODIUM 1 GM in SODIUM CHLORIDE 50 ML IVPB SCH (10:23)
[2024-04-23] MEDS: FUROSEMIDE 40 MG/4 ML INJECTABLE VIAL IVPUSH SCH (06:45)
[2024-04-23 07:28] LABS: BASO % 0.1 % (0-2.0); EOS % 4.4 % (0-4.5); HEMOGLOBIN 8.7 GM/dL (10.7-15.3); LYMPH % 10.8 % (8-40); MCH 25.6 pg (25.7-33.7); MCHC 30.9 g/dl (32.0-36.0); MEAN CELL VOLUME 82.7 fl (80-96); MEAN PLT VOLUME 9.3 fl (7.5-11.1); MONO % 12.5 % (3.8-10.2); NEUT % 72.2 % (42.8-82.8); PLATELET COUNT 174 10^3/uL (134-434); RBC 3.38 M/mm3 (3.60-5.2); RDW 20.4 % (11.6-15.6); WHITE BLOOD COUNT 10.3 K/mm3 (4.0-10.0)
[2024-04-23 07:42] LABS: CHLORIDE 90 mmol/L (98-107); POTASSIUM 4.3 mmol/L (3.5-5.1); SODIUM 135 mmol/L (136-145)
[2024-04-23 07:44] LABS: ALBUMIN 2.4 g/dl (3.4-5.0); ANION GAP 10 mmol/L (4-13); CALCIUM 8.9 mg/dL (8.5-10.1); CO2 35 mmol/L (21-32); GLUCOSE,RANDOM 164 mg/dL (74-106)
[2024-04-23 07:47] LABS: CREATININE 4.3 mg/dL (0.55-1.3)
[2024-04-23 07:48] LABS: SGPT/ALT 14 U/L (13-61)
[2024-04-23 07:50] LABS: ALK PHOS 139 U/L (45-117)
[2024-04-23 08:19] LABS: BLOOD UREA NITROGEN 151.6 mg/dL (7-18); SGOT/AST 33 U/L (15-37)
[2024-04-23] MEDS: ACETAMINOPHEN 650 MG/20.3 ML ORAL SOLUTION (CUPS) PEG PRN (16:33)
[2024-04-23] MEDS: VANCOMYCIN 250 MG/5 ML ORAL SOLUTION (RESTRICTED TO ID ONLY) GT SCH (19:50)
[2024-04-24 07:47] LABS: BASO % 0.3 % (0-2.0); EOS % 6.4 % (0-4.5); HEMATOCRIT 24.6 % (32.4-45.2); HEMOGLOBIN 7.7 GM/dL (10.7-15.3); LYMPH % 7.7 % (8-40); MCH 25.8 pg (25.7-33.7); MCHC 31.2 g/dl (32.0-36.0); MEAN CELL VOLUME 82.5 fl (80-96); MEAN PLT VOLUME 9.8 fl (7.5-11.1); MONO % 10.9 % (3.8-10.2); NEUT % 74.7 % (42.8-82.8); PLATELET COUNT 123 10^3/uL (134-434); RBC 2.98 M/mm3 (3.60-5.2); WHITE BLOOD COUNT 10.9 K/mm3 (4.0-10.0)
[2024-04-24 08:00] LABS: CHLORIDE 90 mmol/L (98-107); POTASSIUM 4.4 mmol/L (3.5-5.1); SODIUM 135 mmol/L (136-145)
[2024-04-24 08:03] LABS: ALBUMIN 2.3 g/dl (3.4-5.0); ANION GAP 10 mmol/L (4-13); CALCIUM 8.8 mg/dL (8.5-10.1); CO2 35 mmol/L (21-32); GLUCOSE,RANDOM 142 mg/dL (74-106)
[2024-04-24 08:04] LABS: BLOOD UREA NITROGEN 147.6 mg/dL (7-18)
[2024-04-24 08:05] LABS: CREATININE 4.4 mg/dL (0.55-1.3); SGPT/ALT 20 U/L (13-61)
[2024-04-24 08:06] LABS: SGOT/AST 47 U/L (15-37)
[2024-04-24 08:08] LABS: ALK PHOS 148 U/L (45-117); TOT PROT 7.4 g/dl (6.4-8.2)
[2024-04-25 13:20] LABS: CHLORIDE 90 mmol/L (98-107); POTASSIUM 3.6 mmol/L (3.5-5.1); SODIUM 137 mmol/L (136-145)
[2024-04-25 13:25] LABS: ALBUMIN 2.2 g/dl (3.4-5.0); ANION GAP 11 mmol/L (4-13); CALCIUM 9.5 mg/dL (8.5-10.1); CO2 36 mmol/L (21-32); GLUCOSE,RANDOM 141 mg/dL (74-106); MAGNESIUM 3.2 mg/dL (1.8-2.4)
[2024-04-25 13:28] LABS: CREATININE 4.4 mg/dL (0.55-1.3); SGPT/ALT 17 U/L (13-61)
[2024-04-25 13:29] LABS: SGOT/AST 35 U/L (15-37)
[2024-04-25 13:30] LABS: BILIRUBIN,TOTAL 0.9 mg/dL (0.2-1); TOT PROT 7.3 g/dl (6.4-8.2)
[2024-04-25 13:31] LABS: ALK PHOS 141 U/L (45-117)
[2024-04-25 13:46] LABS: BLOOD UREA NITROGEN 147.6 mg/dL (7-18)
[2024-04-26] MEDS: VANCOMYCIN ORAL SOLUTION 125 MG/2.5 ML GT SCH (06:30)
[2024-04-26 06:54] LABS: BASO % 0.3 % (0-2.0); EOS % 5.9 % (0-4.5); HEMATOCRIT 27.5 % (32.4-45.2); HEMOGLOBIN 8.2 GM/dL (10.7-15.3); LYMPH % 9.8 % (8-40); MCH 24.5 pg (25.7-33.7); MCHC 29.7 g/dl (32.0-36.0); MEAN CELL VOLUME 82.5 fl (80-96); MEAN PLT VOLUME 9.5 fl (7.5-11.1); MONO % 11.3 % (3.8-10.2); NEUT % 72.7 % (42.8-82.8); PLATELET COUNT 152 10^3/uL (134-434); RBC 3.33 M/mm3 (3.60-5.2); RDW 20.8 % (11.6-15.6); WHITE BLOOD COUNT 9.5 K/mm3 (4.0-10.0)
[2024-04-26 07:14] LABS: CHLORIDE 90 mmol/L (98-107); POTASSIUM 3.6 mmol/L (3.5-5.1); SODIUM 136 mmol/L (136-145)
[2024-04-26 07:17] LABS: CALCIUM 9.2 mg/dL (8.5-10.1)
[2024-04-26 07:18] LABS: ALBUMIN 2.2 g/dl (3.4-5.0); ANION GAP 9 mmol/L (4-13); CO2 38 mmol/L (21-32); GLUCOSE,RANDOM 137 mg/dL (74-106); MAGNESIUM 3.4 mg/dL (1.8-2.4)
[2024-04-26 07:21] LABS: CREATININE 4.5 mg/dL (0.55-1.3); SGOT/AST 31 U/L (15-37); SGPT/ALT 16 U/L (13-61)
[2024-04-26 07:22] LABS: BILIRUBIN,TOTAL 0.9 mg/dL (0.2-1); TOT PROT 7.3 g/dl (6.4-8.2)
[2024-04-26 07:24] LABS: ALK PHOS 139 U/L (45-117)
[2024-04-26 07:41] LABS: BLOOD UREA NITROGEN 146.5 mg/dL (7-18)
[2024-04-26 09:17] LABS: ANISOCYTOSIS 0; MACROCYTOSIS 0; OVALOCYTE 1+
[2024-04-27 07:24] LABS: HEMOGLOBIN 7.8 GM/dL (10.7-15.3); MCH 25.2 pg (25.7-33.7); MCHC 31.1 g/dl (32.0-36.0); MEAN CELL VOLUME 81.1 fl (80-96); MEAN PLT VOLUME 9.3 fl (7.5-11.1); PLATELET COUNT 132 10^3/uL (134-434); RBC 3.08 M/mm3 (3.60-5.2); RDW 20.4 % (11.6-15.6); RETICULOCYTES 1.38 % (0.5-1.5)
[2024-04-27 07:41] LABS: CHLORIDE 90 mmol/L (98-107); POTASSIUM 3.4 mmol/L (3.5-5.1); SODIUM 136 mmol/L (136-145)
[2024-04-27 07:45] LABS: ALBUMIN 2.2 g/dl (3.4-5.0)
[2024-04-27 07:46] LABS: ANION GAP 9 mmol/L (4-13); CALCIUM 9.3 mg/dL (8.5-10.1); CO2 37 mmol/L (21-32)
[2024-04-27 07:47] LABS: GLUCOSE,RANDOM 121 mg/dL (74-106); MAGNESIUM 3.3 mg/dL (1.8-2.4)
[2024-04-27 07:48] LABS: CREATININE 4.7 mg/dL (0.55-1.3); SGOT/AST 33 U/L (15-37); SGPT/ALT 16 U/L (13-61)
[2024-04-27 07:49] LABS: PHOSPHOROUS 7.1 mg/dL (2.5-4.9)
[2024-04-27 07:50] LABS: TOT PROT 7.5 g/dl (6.4-8.2)
[2024-04-27 07:51] LABS: ALK PHOS 132 U/L (45-117)
[2024-04-27 08:30] LABS: BLOOD UREA NITROGEN 151.7 mg/dL (7-18)
[2024-04-27] MEDS: FUROSEMIDE 40 MG/4 ML INJECTABLE VIAL IVPUSH SCH (09:54)
[2024-04-27] MEDS: POTASSIUM CHLORIDE ORAL LIQUID 20 MEQ/15 ML PO SCH (13:39)
[2024-04-27] MEDS: LACTOBACILLUS ACIDOPHILUS 1 TABLET PO SCH (21:21)
[2024-04-28 08:10] LABS: BASO % 0.3 % (0-2.0); EOS % 5.6 % (0-4.5); HEMATOCRIT 25.5 % (32.4-45.2); HEMOGLOBIN 7.6 GM/dL (10.7-15.3); LYMPH % 9.8 % (8-40); MCH 24.3 pg (25.7-33.7); MCHC 29.7 g/dl (32.0-36.0); MEAN PLT VOLUME 9.7 fl (7.5-11.1); MONO % 13.9 % (3.8-10.2); NEUT % 70.4 % (42.8-82.8); PLATELET COUNT 123 10^3/uL (134-434); RBC 3.11 M/mm3 (3.60-5.2); RDW 20.2 % (11.6-15.6); WHITE BLOOD COUNT 8.5 K/mm3 (4.0-10.0)
[2024-04-28 08:22] LABS: CHLORIDE 92 mmol/L (98-107); POTASSIUM 4.2 mmol/L (3.5-5.1); SODIUM 136 mmol/L (136-145)
[2024-04-28 08:24] LABS: ALBUMIN 2.2 g/dl (3.4-5.0); ANION GAP 9 mmol/L (4-13); CALCIUM 9.5 mg/dL (8.5-10.1); CO2 35 mmol/L (21-32); GLUCOSE,RANDOM 129 mg/dL (74-106)
[2024-04-28 08:27] LABS: SGOT/AST 36 U/L (15-37); SGPT/ALT 16 U/L (13-61)
[2024-04-28 08:29] LABS: BILIRUBIN,TOTAL 0.9 mg/dL (0.2-1); TOT PROT 7.5 g/dl (6.4-8.2)
[2024-04-28 08:30] LABS: ALK PHOS 142 U/L (45-117)
[2024-04-28 08:58] LABS: BLOOD UREA NITROGEN 152.5 mg/dL (7-18)
[2024-04-28] MEDS: INSULIN ASPART SLIDING SCALE (NOVOLOG) 1 VIAL SQ SCH (18:35)
[2024-04-28] MEDS: VANCOMYCIN ORAL SOLUTION 125 MG/2.5 ML GT SCH (18:36)
[2024-04-28] MEDS: ACETAMINOPHEN 650 MG/20.3 ML ORAL SOLUTION (CUPS) PEG PRN (18:38)
[2024-04-28] MEDS: ATORVASTATIN CA 40 MG TABLET (FP) GT SCH (22:05)
[2024-04-28] MEDS: LACTOBACILLUS ACIDOPHILUS 1 TABLET PO SCH (22:05)
[2024-04-28] MEDS: METOPROLOL TARTRATE 50 MG TABLET (FP) GT SCH (22:05)
[2024-04-28] MEDS: HEPARIN NA (PORCINE) 5,000 UNITS/ML 1ML VIAL SQ SCH (22:06)
[2024-04-29 10:31] LABS: HEMATOCRIT 24.4 % (32.4-45.2); HEMOGLOBIN 7.5 GM/dL (10.7-15.3); MCHC 30.8 g/dl (32.0-36.0); MEAN CELL VOLUME 81.3 fl (80-96); PLATELET COUNT 107 10^3/uL (134-434); RDW 20.5 % (11.6-15.6); WHITE BLOOD COUNT 8.1 K/mm3 (4.0-10.0)
[2024-04-29 10:57] LABS: CHLORIDE 91 mmol/L (98-107); POTASSIUM 4.3 mmol/L (3.5-5.1); SODIUM 137 mmol/L (136-145)
[2024-04-29 11:00] LABS: ALBUMIN 2.2 g/dl (3.4-5.0); CALCIUM 9.5 mg/dL (8.5-10.1)
[2024-04-29 11:01] LABS: ANION GAP 10 mmol/L (4-13); CO2 35 mmol/L (21-32); GLUCOSE,RANDOM 152 mg/dL (74-106); MAGNESIUM 3.6 mg/dL (1.8-2.4)
[2024-04-29] MEDS: FERROUS SO4 300 MG/5 ML ORAL SOLN UNIT DOSE CUPS GT SCH (11:01)
[2024-04-29] MEDS: FUROSEMIDE 40 MG/4 ML INJECTABLE VIAL IVPUSH SCH (11:01)
[2024-04-29 11:03] LABS: SGPT/ALT 17 U/L (13-61)
[2024-04-29 11:04] LABS: CREATININE 5.3 mg/dL (0.55-1.3); SGOT/AST 41 U/L (15-37)
[2024-04-29 11:05] LABS: BILIRUBIN,TOTAL 0.9 mg/dL (0.2-1); TOT PROT 7.6 g/dl (6.4-8.2)
[2024-04-29 11:06] LABS: ALK PHOS 144 U/L (45-117)
[2024-04-29] MEDS: FAMOTIDINE 20 MG/2.5 ML ORAL LIQUID GT SCH (11:07)
[2024-04-29 11:18] LABS: BLOOD UREA NITROGEN 157.2 mg/dL (7-18)
[2024-04-29] MEDS: ZINC OXIDE 20% TOPICAL OINTMENT 30 GM TUBE TP SCH (16:32)
[2024-04-29] MEDS: LACTOBACILLUS ACIDOPHILUS 1 TABLET GT SCH (21:58)
[2024-05-01] MEDS: SCOPOLAMINE HYDROBROMIDE 1 PATCH PATCH.TD72 TD SCH (10:40)
[2024-05-02] MEDS: MAGNESIUM HYDROX 2400MG/30ML ORAL SUSPENSION 30 ML CUP GT SCH (10:11)
[2024-05-03 09:23] LABS: MCH 24.6 pg (25.7-33.7); MCHC 30.2 g/dl (32.0-36.0); MEAN CELL VOLUME 81.3 fl (80-96); MEAN PLT VOLUME 10.6 fl (7.5-11.1); PLATELET COUNT 86 10^3/uL (134-434); RBC 2.83 M/mm3 (3.60-5.2); RDW 20.2 % (11.6-15.6); WHITE BLOOD COUNT 10.1 K/mm3 (4.0-10.0)
[2024-05-03 09:48] LABS: POTASSIUM 4.1 mmol/L (3.5-5.1); SODIUM 136 mmol/L (136-145)
[2024-05-03 09:55] LABS: ALBUMIN 1.9 g/dl (3.4-5.0); SGPT/ALT 21 U/L (13-61)
[2024-05-03 09:56] LABS: GLUCOSE,RANDOM 164 mg/dL (74-106); SGOT/AST 69 U/L (15-37)
[2024-05-03 09:57] LABS: BILIRUBIN,TOTAL 0.8 mg/dL (0.2-1); CALCIUM 9.4 mg/dL (8.5-10.1); TOT PROT 7.6 g/dl (6.4-8.2)
[2024-05-03 09:58] LABS: CO2 34 mmol/L (21-32); MAGNESIUM 3.7 mg/dL (1.8-2.4)
[2024-05-03 09:59] LABS: PHOSPHOROUS 6.3 mg/dL (2.5-4.9)
[2024-05-03 10:11] LABS: ALK PHOS 184 U/L (45-117); ANION GAP 11 mmol/L (4-13); CHLORIDE 92 mmol/L (98-107); CREATININE 6.6 mg/dL (0.55-1.3)
[2024-05-04 07:10] VITALS: BP 101/64; TEMP 97.3
[2024-05-04 08:57] VITALS: RESP 14
[2024-05-04] MEDS: fentaNYL 25mcg/hr PATCH.TD72 TD SCH (12:56)
[2024-05-04 13:57] VITALS: PULSE 88
[2024-05-04] MEDS: FENTANYL PATCH WASTE TD PRN (17:19)
== END 2024-05-04 18:28 | disposition expired | DRG 291 ==
LOC: JER 15:21 → JERBED 21:09 → J2W 04-20 02:51 → J5S 04-28 15:02
PROVIDERS: ADMIT Internal Medicine
PROC: 5A1955Z Respiratory Ventilation, Greater than 96 Consecutive Hours (ICD-10-PCS; principal; 2024-04-18)
DX: I13.2 Hypertensive heart and chronic kidney disease with heart failure and with stage 5 chronic kidney disease, or end stage renal disease (principal); I50.23 Acute on chronic systolic (congestive) heart failure; L89.323 Pressure ulcer of left buttock, stage 3; N18.6 End stage renal disease; I69.354 Hemiplegia and hemiparesis following cerebral infarction affecting left non-dominant side; J96.10 Chronic respiratory failure, unspecified whether with hypoxia or hypercapnia; N17.9 Acute kidney failure, unspecified; E87.3 Alkalosis; Z68.43 Body mass index [BMI] 50.0-59.9, adult; A04.72 Enterocolitis due to Clostridium difficile, not specified as recurrent; N39.0 Urinary tract infection, site not specified; Z99.11 Dependence on respirator [ventilator] status; I13.0 Hypertensive heart and chronic kidney disease with heart failure and stage 1 through stage 4 chronic kidney disease, or unspecified chronic kidney disease; Z93.0 Tracheostomy status; E66.01 Morbid (severe) obesity due to excess calories; L89.202 Pressure ulcer of unspecified hip, stage 2; L89.322 Pressure ulcer of left buttock, stage 2; E87.70 Fluid overload, unspecified; E78.5 Hyperlipidemia, unspecified; D69.6 Thrombocytopenia, unspecified; D64.9 Anemia, unspecified; E83.41 Hypermagnesemia; E87.5 Hyperkalemia; E83.39 Other disorders of phosphorus metabolism; I25.10 Atherosclerotic heart disease of native coronary artery without angina pectoris
CPT/HCPCS: 0241U-QW; 36415; 71045-TC-FY; 80048; 80053; 81003; 82803; 82962; 83605; 83735; 83880; 84100; 84484; 85025; 85027; 85045; 85610; 85730; 86850; 86900; 86901; 87040; 87045; 87046; 87086; 87186; 87205; 87209; 87324; 87449; 87481; 87493; 93005; 93010; 94002; 97161-GP; 99285-25; J0131; J1644; P9047